=== PATIENT | female | born 1990 | race Caucasian/White ===

== ENCOUNTER → 2017-05-22 10:35 | Outpatient (CLI) | payer OTHER, SELFPAY ==
[2017-05-22 11:21] LABS: Color, Urine Yellow (Yellow); Glucose, Dipstick Normal (Normal); Ketone-Dipstick Negative (Negative); Leukocyte Esterase-Dipstick 25 /ul (Negative); Nitrite-Dipstick Negative (Negative); Occult Blood-Urine Negative /ul (Negative); Protein-Dipstick Negative (Negative); Urine Bilirubin Dipstick Negative (Negative); Urine Clarity Sl. Cloudy (Clear); Urine Urobilinogen Normal (Normal)
[2017-05-22 11:27] LABS: Absolute Lymphocyte Count 1.66 X10^3/ul (0.83-4.51); Absolute Neutrophil Count 2.5 X10^3/uL (2.0-7.7); Basophil# 0.03 X10^3/uL; Basophil% 0.6 % (0-1); Eosinophils% 2.1 % (0-5); Hematocrit 37.8 % (37-47); Hemoglobin 13.1 g/dl (12.0-15.0); Lymphocyte # 1.66 X10^3/ul (4.0); Lymphocyte % 34.7 % (19-41); Mean Corp Hgb Conc 34.7 g/gl (32-36); Mean Corpuscular Hgb 31.4 pg (27.0-32.0); Mean Corpuscular Volume 90.6 fL (81-99); Mean Platelet Vol. 9.2 fl (6.2-12.0); Monocyte# 0.44 X10^3/uL; Monocyte% 9.2 % (0-10); Neutrophil # 2.54 X10^3/uL (2.7-7.7); Neutrophil % 53.2 % (47-70); POSITIVE COUNT NO; POSITIVE DIFFERENTIAL NO; POSITIVE MORPHOLOGY NO; Platelet Count 286 K/mm3 (150-450); RBC Distribution Width CV 12.8 % (11.6-14.6); RBC Distribution Width SD 42.2 fl (35.1-43.9); Red Blood Count 4.17 M/mm3 (4.2-5.4); White Blood Count 4.8 K/mm3 (4.4-11.0)
[2017-05-22 12:01] LABS: Thyroid Stim Hormone (TSH) 0.82 uIU/mL (0.358-3.74)
[2017-05-22 12:07] LABS: Amphetamine Urine VISTA NEGATIVE (<1000 ng/mL); Barbiturate Urine VISTA NEGATIVE (< 200 ng/mL); Benzodiazepine Urine VISTA NEGATIVE (< 200 ng/mL); Cocaine Urine VISTA NEGATIVE (< 300 ng/mL); Ecstacy Urine VISTA NEGATIVE (< 500 ng/mL); Methadone Urine VISTA NEGATIVE (< 300 ng/mL); PCP Urine VISTA NEGATIVE (< 25 ng/mL); THC Urine VISTA NEGATIVE (< 50 ng/mL); Vista UDS pH Range 6
[2017-05-22 12:46] LABS: HIV - WCH Non-Reactive (Nonreactive); Rubella IgG 134.4 IU/mL
[2017-05-22 12:55] LABS: COTININE Drug Screen Negative (<200 ng/mL)
[2017-05-23 15:56] LABS: HEPATITIS B SURFACE AG Negative (Negative); Hep C Antibodies 0.1 s/co ratio (0.0-0.9)
[2017-05-24 01:51] LABS: Prenatal RPR NONREACTIVE (NONREACTIVE)
== END ==
PROVIDERS: Visit Provider Obstetrics & Gynecology
DX: Z34.81 Encounter for supervision of other normal pregnancy, first trimester (principal)
CPT/HCPCS: 36415; 80307; 81002; 84443; 85025; 86703; 86762; 86803; 87340

== ENCOUNTER → 2017-06-26 15:34 | Outpatient (CLI) | payer OTHER, SELFPAY ==
[2017-06-30 03:07] LABS: AFP MoM Value 0.86 (.); Comment Report (.); DIA MoM Value 1.16 (.); DIA Value-EIA 223.49 pg/mL (.); DSR (By Age) 835 (.); DSR (Second Trimester) 2017 (.); Gestat. Age Based On As provided (.); Insulin Dep Diabetes No (.); Maternal Age At EDD 28.3 YEARS (.); hCG MoM 0.64 (.)
== END ==
PROVIDERS: Visit Provider Obstetrics & Gynecology
DX: Z34.82 Encounter for supervision of other normal pregnancy, second trimester (principal)
CPT/HCPCS: 36415; 82105; 82677; 84702; 86336

== ENCOUNTER → 2017-09-16 08:43 | Outpatient (CLI) | payer OTHER, SELFPAY ==
[2017-09-16 11:10] LABS: Hematocrit 33.6 % (37-47); Hemoglobin 11.2 g/dl (12.0-15.0); Mean Corp Hgb Conc 33.3 g/gl (32-36); Mean Corpuscular Hgb 31.2 pg (27.0-32.0); Mean Corpuscular Volume 93.6 fL (81-99); Mean Platelet Vol. 9.8 fl (6.2-12.0); Platelet Count 200 K/mm3 (150-450); RBC Distribution Width CV 13.8 % (11.6-14.6); RBC Distribution Width SD 46.9 fl (35.1-43.9); Red Blood Count 3.59 M/mm3 (4.2-5.4)
[2017-09-16 11:13] LABS: Glucose Challenge Gest 1H 50g 181 mg/dL (70-140)
[2017-09-16 11:16] LABS: Scan Indicated on CBC? Y/N NO
== END ==
PROVIDERS: Visit Provider Obstetrics & Gynecology
DX: Z34.82 Encounter for supervision of other normal pregnancy, second trimester (principal)
CPT/HCPCS: 36415; 82950; 85027

== ENCOUNTER → 2017-09-25 09:57 | Outpatient (CLI) | payer OTHER, SELFPAY ==
[2017-09-25 12:17] LABS: Glucose GTT-Gestation. Fasting 73 mg/dL (<105)
[2017-09-25 12:49] LABS: Glucose GTT-Gestational 1 Hr 138 mg/dL (<190)
[2017-09-25 14:19] LABS: Glucose GTT-Gestational 2 Hr 129 mg/dL (<165)
[2017-09-25 14:20] LABS: Glucose GTT-Gestational 3 Hr 88 L (<145)
== END ==
PROVIDERS: Family Provider Family Medicine; PCP Family Medicine; Visit Provider Obstetrics & Gynecology
DX: O24.912 Unspecified diabetes mellitus in pregnancy, second trimester (principal); Z3A.00 Weeks of gestation of pregnancy not specified
CPT/HCPCS: 36415; 82951; 82952

== ENCOUNTER → 2017-11-24 18:26 | Outpatient (CLI) | payer OTHER, SELFPAY ==
[2017-11-24 21:28] LABS: Group B Strep DNA By PCR POSITIVE (Negative); Probe Check PASS
== END ==
PROVIDERS: Visit Provider Obstetrics & Gynecology
DX: Z36.85 Encounter for antenatal screening for Streptococcus B (principal)
CPT/HCPCS: 87653

== ENCOUNTER 2017-12-04 17:30 | Outpatient (CLI) | payer OTHER, SELFPAY ==
[2017-12-04 17:57] VITALS: BMI 31.6
--- NOTE | 2017-12-04 19:28 | OB.TRI.NOTE ---
- Problem List (1) 38 weeks gestation of Status: Acute (2) Uterine contractions at greater than 20 weeks of gestation Status: Acute History of Present Illness Date of Service: 12/04/17 Was patient seen by the physician?: Yes Reason For Visit: R/O LABOR Final ANTONELLA: 12/18/17 Final ANTONELLA Source: US <20 weeks Gestational age: 38 Weeks and 0 Days History of Present Illness: 27yo at 38 weeks gestation with complaint of contractions. + movement. No leaking of fluid however has abundant mucus. No vaginal bleeding. Allergies No Known Allergies Allergy (Verified 01/11/15 09:45) Physical Exam Vitals: AVSS General: Alert, Oriented x3, Cooperative, - HEENT: Atraumatic, Normocephalic Cervix Dilation (cm): 4 - per BRITTANY Bravo Station: -2 Effacement (%): 60 NST - FHR Rate Baby A Baseline: 120 Variability:: Moderate Accelerations:: 15 x 15 Decelerations:: None NST Reactive:: Yes FHR Category:: Category I Uterine Activity:: 2/10 min Impression/Plan 27yo @ 38wga with contractions, Cat I FHR -Likely latent labor vs. false labor -Will repeat cervix check in 1-2 hours
--- NOTE | 2017-12-04 20:33 | PCM.PN.BLA ---
Progress Note PROGRESS NOTE Patient reports contractions intensifying. AVSS GEN - NAD, AAO x 3 TOCO 2/10 min FHR 110, moderate variability, + accelerations, no decelerations. SVE 07/29/-4, posterior and moderate A/P: 27yo at 38wga with contractions, Cat I-II FHR -During evaluation FHR noted to decrease to 103-105 and appeared that baseline had decreased relative to prior Cat I FHR. status otherwise reassuring. Will monitor FHR for additional hour and returns to Cat I will plan for d/c home given cervix unchanged x 3. If FHR persistently Cat II will consider induction of labor.
== END 2017-12-04 22:42 | disposition home or self-care (01) ==
LOC: WPOUT 17:46 → WP 12-08 08:34
PROVIDERS: Family Provider Family Medicine; PCP Family Medicine; Visit Provider Obstetrics & Gynecology
DX: O47.1 False labor at or after 37 completed weeks of gestation (principal); Z3A.38 38 weeks gestation of pregnancy
CPT/HCPCS: 59025; 59050; 99218; G0378

== ENCOUNTER 2017-12-05 16:20 | Inpatient (IN) | payer OTHER, SELFPAY ==
[2017-12-05] MEDS: Lactated Ringers 1,000 ML 50 ML IV ×3 (17:30→23:53)
[2017-12-05 17:34] VITALS: BMI 32.3
[2017-12-05 17:53] LABS: Hematocrit 34.3 % (37-47); Hemoglobin 11.4 g/dl (12.0-15.0); Mean Corp Hgb Conc 33.2 g/gl (32-36); Mean Corpuscular Hgb 31.2 pg (27.0-32.0); Mean Platelet Vol. 9.9 fl (6.2-12.0); Platelet Count 209 K/mm3 (150-450); RBC Distribution Width CV 13.6 % (11.6-14.6); RBC Distribution Width SD 46.6 fl (35.1-43.9); Red Blood Count 3.65 M/mm3 (4.2-5.4)
[2017-12-05 17:58] LABS: Scan Indicated on CBC? Y/N NO
[2017-12-05] MEDS: Oxytocin 30 units/NS 500 ml 30 UNITS/500 ML IV.SOLN IV (18:35)
[2017-12-05] MEDS: fentaNYL-bupivacaine (epidural) 100 ML BAG EPIDURAL ×2 (19:34→23:47)
[2017-12-05] MEDS: Ondansetron 4 MG/2 ML Vial IV (21:10)
[2017-12-06] VITALS (23 sets, daily range): BP systolic 93–113; BP diastolic 38–61; PULSE 59–95; RESP 16–20; TEMP 36.1–36.8; O2SAT 95–100
--- NOTE | 2017-12-06 00:35 | PCM.PN.BLA ---
Progress Note LABOR PROGRESS NOTE Comfortable with epidural. Informed by RN no change in cervical exam and no presenting part present. AVSS GEN - NAD, AAO x 3 FHR 115, moderate variability, + accelerations, no decelerations TOCO 1-2/10 min SVE deferred US - fetus breech, back maternal midline, ANDREA 5cm A/P: 27yo @ 38 2/7wga in latent labor , Cat I FHR -Rh positive -Advised section - reviewed with patient and section indications, benefits. Risks including pain, bleeding, hematoma, hemorrhage, infection including endometritis, abscess or sepsis; bowel or bladder injury, scarring, adhesions affecting future , nerve related injury, need for further surgery, possibly including dilation and curettage or hysterectomy. Patient given opportunity to ask questions and questions answered to her satisfaction. Discussed anticipated post-operative recovery. -Anesthesiology notified -Blood transfusion acceptable as indicated
[2017-12-06] MEDS: Sodium Citrate/Citric Acid 30 ML UDC PO (00:49)
[2017-12-06] MEDS: Cefazolin 2 GM in 0.9% Normal Saline 100 ML IV (00:58)
[2017-12-06] MEDS: Oxytocin 30 units/NS 500 ml 30 UNITS/500 ML IV.SOLN 167 UNITS IV (01:20)
--- NOTE | 2017-12-06 02:13 | PCM.IMED.CSR ---
- Problem List (1) Breech presentation of fetus delivered Status: Acute (2) Status post section Status: Acute (3) 38 weeks gestation of Status: Acute A-Kwlswyt-Gjbudyrrh PostOp Date of Procedure: 12/06/17 Primary Surgeon/Physician: Corie Mcdermott gasoline truck operator: Bailey Evans Pre-op Diagnosis: Breech Post-Op Diagnosis: Breech Surgery/Procedure Performed: Primary low transverse Section Description of Surgical Findings:: Normal tubes bilaterally complete breech 3278g, Apgars 8 and 9 Estimated Blood Loss: 800 ml Specimens Removed: placenta Drain: Chen to straight drain Type of Anesthesia: Epidural - Admit VTE Documentation VTE Present on Admission: No VTE Mechan Device Prophylaxis: SCD's VTE Pharm Prophylaxis ordered?: No
--- NOTE | 2017-12-06 02:15 | PCM.OB.CSR ---
- Problem List (1) Breech presentation of fetus delivered Status: Acute (2) Status post section Status: Acute (3) 38 weeks gestation of Status: Acute Delivery Classification: BENJAMIN Final ANTONELLA: 12/18/17 Final ANTONELLA Source: US <20 weeks Gestational age: 38 Weeks and 2 Days Indications: Breech presentation Indications for : Breech Description of Procedure: Normal tubes bilaterally complete breech Infant 3278g, Apgars 8 and 9 Amniotic Membrane Rupture Type: Artificial Amniotic Fluid Description: Clear Placenta Disposition: [facility] Specimen(s) sent to pathology: placenta Drain: Chen to straight drain Fluids Replaced: 1300 Cord Entanglement: None Nuchal Cord Compression: Without compression Cord Vessel Description: 3 Vessels Esitmated Blood Loss (ml): 800 Gender: Male (1 minute): 8 (5 minute): 9 Delayed cord clamping: Yes Pre-op Antibiotic Given: Ancef 2 grams IV x1 Pt instructed on risks of surgery: Bleeding, Anesthesia Risks, Infection, Injury to surrounding structure(s) including bowel and bladder Complications: None - Admit VTE Documentation VTE Present on Admission: No VTE Mechan Device Prophylaxis: SCD's VTE Pharm Prophylaxis ordered?: No
[2017-12-06] MEDS: Lactated Ringers 1,000 ML 100 ML IV (04:04)
[2017-12-06] MEDS: Ketorolac 30 MG/ML Syringe IV ×3 (08:02→20:06)
--- NOTE | 2017-12-06 11:10 | PCM.PN.BLA ---
Progress Note Patient has mother and stepfather visiting. She relates pain is controlled and is out of bed and sitting in chair holding . She has no complaints this morning. Vitals reviewed and wnl. Continue routine post-op care.
[2017-12-06] MEDS: 0.9% Saline Lock 10 ML Syringe IV ×2 (14:14→20:06)
--- NOTE | 2017-12-06 17:29 | NURSING ---
1645 Chen discontinued per patient request. Emptied for another 400ml clear lt yellow urine. Instructed patient to call for help to go to bathroom due to pulse oximeter. States she will. Instructed to measure urine in speci hat x2. Instructed in tom care. Up to the bathroom, tom care done per pt. Returns to bed, resting. States she is comfortable.
--- NOTE | 2017-12-06 18:52 | NURSING ---
1650 Up to the bathroom voids 400ml, aleena well. states she feels like she emptied her bladder. darren nails.
[2017-12-07 00:05] VITALS: PULSE 64; RESP 18; O2SAT 97
[2017-12-07 01:25] VITALS: BP 97/52; PULSE 67; RESP 18; TEMP 36.4; O2SAT 98
[2017-12-07] MEDS: Ketorolac 30 MG/ML Syringe IV ×4 (01:32→19:48)
[2017-12-07] MEDS: oxyCODONE 5 MG Tablet PO ×3 (01:33→13:03)
[2017-12-07] MEDS: 0.9% Saline Lock 10 ML Syringe IV ×4 (01:33→19:48)
[2017-12-07 05:49] LABS: Hematocrit 28.8 % (37-47); Hemoglobin 9.4 g/dl (12.0-15.0); Mean Corp Hgb Conc 32.6 g/gl (32-36); Mean Corpuscular Hgb 31.8 pg (27.0-32.0); Mean Corpuscular Volume 97.3 fL (81-99); Mean Platelet Vol. 9.5 fl (6.2-12.0); Platelet Count 160 K/mm3 (150-450); RBC Distribution Width CV 13.4 % (11.6-14.6); RBC Distribution Width SD 45.9 fl (35.1-43.9); Red Blood Count 2.96 M/mm3 (4.2-5.4)
[2017-12-07 05:57] LABS: Scan Indicated on CBC? Y/N NO
[2017-12-07 07:40] VITALS: BP 100/56; PULSE 66; RESP 16; TEMP 36.6; O2SAT 96
--- NOTE | 2017-12-07 09:05 | PCM.PN.OB ---
Patient Problems: Active and Suspected Problems Breech presentation of fetus delivered (Acute) Status post section (Acute) Subjective: No issues overnight. OOB and ambulating. Passing flatus. Tolerates a regular diet. She is . No complaints. Gregoria has questions about activity restrictions at home. Objective: avsss - Physical Exam General: Alert, Oriented x3, Cooperative, No apparent distress HEENT: Atraumatic, Normocephalic Lungs: Clear to auscultation, Normal air movement, No rhonchi, No wheeze, No rales Cardiovascular: Regular rate, Regular Rhythm, Normal S1, Normal S2, No murmurs Abdomen: Soft, Non Tender, Non-Distended, Hypoactive Bowel Sounds, - - Fundus firm and nontender, lochia scant, incisional dressing minimally saturated Extremities: No edema, No Calf Tenderness Neurological: Neuro grossly intact Psych/Mental Status: Normal Affect, Appropriate, Alert and oriented to time, place, person, mood and affect Vital Signs Temp Pulse Resp BP Pulse Ox 97.8 F 66 16 100/56 L 96 12/07/17 07:40 12/07/17 07:40 12/07/17 07:40 12/07/17 07:40 12/07/17 07:40 Oxygen Delivery Method Room Air Weight: 80.2 kg Body Mass Index (BMI) 32.3 Intake and Output for Last 24 Hours 12/05/17 12/06/17 12/07/17 23:59 23:59 23:59 Intake Total 1915 / 1915 3985 / 3985 Output Total 900 / 900 3050 / 3050 Balance 1015 / 1015 935 / 935 Laboratory Tests Past 24 Hrs 12/07/17 05:10 WBC 7.0 RBC 2.96 L Hgb 9.4 L Hct 28.8 L MCV 97.3 MCH 31.8 MCHC 32.6 RDW 13.4 RDW Differential 45.9 H Plt Count 160 MPV 9.5 Medical Necessity - Tobacco Use Smoking Status: Former smoker Assessment/Plan All Active Problems 38 weeks gestation of (Acute) Uterine contractions at greater than 20 weeks of gestation (Acute) Breech presentation of fetus delivered (Acute) Status post section (Acute) 27yo POD#1 s/p PLTCS doing well. -Rh positive -Routine postop care - -Discussed activity restrictions and home care
[2017-12-07] MEDS: Acetaminophen 325 MG Tablet PO ×2 (09:40→19:00)
[2017-12-07 14:40] VITALS: BP 128/71; PULSE 80; RESP 15; TEMP 36.9; O2SAT 96
[2017-12-07 19:35] VITALS: BP 105/61; PULSE 69; RESP 18; TEMP 37.2; O2SAT 96
--- NOTE | 2017-12-07 22:14 | PCM.DCCSEC ---
Discharge Diet: No Restrictions Discharge Activity: Return to Normal Activity, May not drive while taking narcotic pain medications., May Shower, - - No tuba bath x 2 weeks May resume sexual activity in: 6 weeks Lifting Restrictions: 10-20 lb Call your doctor if your incision/area has: Continuous Slow Oozing, Sudden Increased Bleeding, Increased Pain/ Swelling, Increased Redness, Foul Smelling Discharge Call your doctor if you observe: Fever of 101 or Higher, Inability to urinate, Inability to have a bowel movement, Using more than one pad per hour, Shortness of breath, Chest pain, Calf discomfort, Uncontrolled pain Suture Line Care: Avoid Pulling/Pushing Remove Dressing in (days):: 3 Cleanse incision/area with: Soap & Water Additional Instructions: If you experience any of the following, contact your healthcare provider. Bleeding that soaks a pad every hour for 2 hours Fever 100.4 or higher Unrelieved incision or abdominal pain Swelling, redness, discharge or bleeding from your incision or episiotomy site Your incision begins to separate Problems urinating (including inability to urinate or burning while urinating). Visual changes Severe headache Flu-like symptoms Pain or redness in one of both of your breasts Pain, warmth, tenderness or swelling in your legs, especially the calf area Frequent nausea and vomiting Symptoms of depression or anxiety If you experience any of the following, call 911 or go to the nearest Emergency Room. Chest pain Problems breathing Seizure activity Partial or complete paralysis of a body part, slurred speech, weakness or drooping of the face, or a sudden inability to walk or hold your balance TAKE A MULTIVITAMIN FOR LONG YOU ARE NURSING OR 6 WEEKS - WHICHEVER IS LONGER Allergies/Adverse Reactions: Allergies No Known Allergies Allergy (Verified 01/11/15 09:45) Medications to take at Discharge Ibuprofen 600 mg PO TID PRN #30 tab 12/07/17 Oxycodone [Oxyir] 5 mg PO Q4H PRN PRN 3 Days #18 tablet 12/07/17 Senna/Docusate Sodium [Senokot-S] 1 - 2 tab PO DAILY PRN #60 tablet 12/07/17 The following prescriptions were given: Oxycodone [Oxyir] 5 mg PO Q4H PRN PRN 3 Days #18 tablet PRN Reason: Pain Ibuprofen 600 mg PO TID PRN #30 tab PRN Reason: Pain Follow-Up: Call to make an appointment with your doctor for an incision check in 1-2 weeks. You will also need a 6 week post- follow up appointment. Test results from this visit will be discussed in further detail at your follow-up appointment, if applicable. Please Follow Up With: Eden Mac MD When: 1-2 weeks Primary Care Physician: Azeem Stone MD [Primary Care Provider] -
[2017-12-08] MEDS: Senna/Docusate Sodium 1 Tablet PO (01:52)
[2017-12-08] MEDS: Ketorolac 30 MG/ML Syringe IV (01:53)
[2017-12-08 02:00] VITALS: BP 100/61; PULSE 72; RESP 16; TEMP 36.7; O2SAT 98
[2017-12-08] MEDS: Acetaminophen 325 MG Tablet PO (04:16)
--- NOTE | 2017-12-08 07:45 | PCM.PN.OB ---
Patient Problems: Active and Suspected Problems Breech presentation of fetus delivered (Acute) Status post section (Acute) Subjective: POD#2 Primary C/S Breech Doing well. Milk not quite in. would like to go home today. States feels pretty well. no concerns voiced. Asking about when to remove dressing from incision. Pain control adequate. - Physical Exam General: Alert, Oriented x3, Cooperative, No apparent distress HEENT: Atraumatic Neck: Supple Abdomen: Soft - Fundus firm NT at 1-2 cm inferior to umbilicus Skin: Incision - Mepilex CDI. Minimal shadow drainage marked, w/o extension. Neurological: Cranial nerves II-XII grossly intact Psych/Mental Status: Normal Affect Vital Signs Temp Pulse Resp BP Pulse Ox 98.1 F 72 16 100/61 98 12/08/17 02:00 12/08/17 02:00 12/08/17 02:00 12/08/17 02:00 12/08/17 02:00 Oxygen Delivery Method Room Air Weight: 80.2 kg Body Mass Index (BMI) 32.3 Intake and Output for Last 24 Hours 12/06/17 12/07/17 12/08/17 23:59 23:59 23:59 Intake Total 3985 / 3985 Output Total 3050 / 3050 Balance 935 / 935 Medical Necessity - Tobacco Use Smoking Status: Former smoker Assessment/Plan All Active Problems 38 weeks gestation of (Acute) Uterine contractions at greater than 20 weeks of gestation (Acute) Breech presentation of fetus delivered (Acute) Status post section (Acute) POD#2 Primary c/S breech Stable pp. requests dischg home today. RTO in 2 wk for postop incision check. reviewed care of incision.
--- NOTE | 2017-12-08 07:49 | PCM.DC.SUM ---
Discharge Date and Diagnosis - Problem List Patient Problems: Active and Suspected Problems Breech presentation of fetus delivered (Acute) Status post section (Acute) Date of Admission: 12/05/17 - 38 2/7 wk latent labor Date of Discharge: 12/08/17 - s/p primary C/S , breech presentation - Primary Discharge Diagnosis Active and Suspected Problems Breech presentation of fetus delivered (Acute) Status post section (Acute) Hospital Course and Treatment Operations: - - primary C/S breech Summary of Care Provided: The patient is a 27 year old female admitted in latent labor. Epidural placed. Presenting part not palpable and sono revealed breech presentation. Primary C/S performed delivered lopez male 7# 4 oz. Breech presentation. Postop course uneventful. Acute blood loss anemia noted after surgery with hgb 9.4 g/dl. tolerating diet, pain control adequate. Minimal vaginal bleeding. Exam benign. Breast feeding. Requests dischg home today , POD#2. RTO in 2 wk for postop incision check. Discharge Diet: No Restrictions Discharge Activity: Return to Normal Activity, May not drive while taking narcotic pain medications., May Shower, - - No tuba bath x 2 weeks May resume sexual activity in: 6 weeks Call your doctor if your incision/area has: Continuous Slow Oozing, Sudden Increased Bleeding, Increased Pain/ Swelling, Increased Redness, Foul Smelling Discharge Call your doctor if you observe: Fever of 101 or Higher, Inability to urinate, Inability to have a bowel movement, Using more than one pad per hour, Shortness of breath, Chest pain, Calf discomfort, Uncontrolled pain Suture Line Care: Avoid Pulling/Pushing Remove Dressing in (days):: 3 Cleanse incision/area with: Soap & Water Home Medications: Medications to take at Discharge Ibuprofen 600 mg PO TID PRN #30 tab 12/07/17 Oxycodone [Oxyir] 5 mg PO Q4H PRN PRN 3 Days #18 tablet 12/07/17 Senna/Docusate Sodium [Senokot-S] 1 - 2 tab PO DAILY PRN #60 tablet 12/07/17 Following Prescrptions Were Given to Patient: Oxycodone [Oxyir] 5 mg PO Q4H PRN PRN 3 Days #18 tablet PRN Reason: Pain Ibuprofen 600 mg PO TID PRN #30 tab PRN Reason: Pain Primary Care Physician: Azeem Stone MD [Primary Care Provider] - Please Follow Up With: Eden Mac MD When: 1-2 weeks Medical Necessity - Tobacco Use Smoking Status: Former smoker Meaningful Use Info Meaningful Use Diagnoses (Choose all that apply): None applicable
[2017-12-08 08:10] VITALS: BP 104/37; PULSE 60; RESP 15; TEMP 36.6; O2SAT 100
[2017-12-08] MEDS: oxyCODONE 5 MG Tablet PO (09:44)
[2017-12-08 12:00] VITALS: BP 112/46; PULSE 66; RESP 16; TEMP 36.6; O2SAT 95
== END 2017-12-08 13:45 | disposition home or self-care (01) | DRG 765 ==
PROVIDERS: Admitting Provider Obstetrics & Gynecology; Family Provider Family Medicine; PCP Family Medicine; Visit Provider Obstetrics & Gynecology
DX: O32.1XX0 Maternal care for breech presentation, not applicable or unspecified (principal); D62 Acute posthemorrhagic anemia; O76 Abnormality in fetal heart rate and rhythm complicating labor and delivery; O90.81 Anemia of the puerperium; O99.824 Streptococcus B carrier state complicating childbirth; Z87.59 Personal history of other complications of pregnancy, childbirth and the puerperium; Z87.891 Personal history of nicotine dependence; Z3A.38 38 weeks gestation of pregnancy; Z37.0 Single live birth
CPT/HCPCS: 59025; 59050; 85027; 86850; 86900; 94762; 99218; J7120; A4216; G0378; J2405

== ENCOUNTER → 2017-12-11 14:57 | Outpatient (CLI) | payer OTHER, SELFPAY | PROVIDERS: Family Provider Family Medicine; PCP Family Medicine; Visit Provider Obstetrics & Gynecology | DX: R60.0 Localized edema (principal) | CPT/HCPCS: 93971 ==

== ENCOUNTER → 2018-01-15 13:32 | Outpatient (CLI) | payer OTHER, SELFPAY ==
[2018-01-15 21:46] LABS: Chlamydia Trachomatis by PCR Negative (Negative); Neisserai gonorrhoeae by PCR Negative (Negative); Probe Check PASS; Sample Adequacy Control PASS; Specimen Processing Control PASS
== END ==
PROVIDERS: Visit Provider Obstetrics & Gynecology
DX: Z11.3 Encounter for screening for infections with a predominantly sexual mode of transmission (principal)
CPT/HCPCS: 87491; 87591

== ENCOUNTER → 2019-11-03 08:48 | Outpatient (CLI) | payer BC, SELFPAY ==
--- NOTE | 2019-11-03 08:52 | BI_ITS ---
MAMMOGRAPHY - BILATERAL DIAGNOSTIC REASON FOR EXAM: Female, 29 years old. Six-month history of right breast lump with occasional tenderness. PERTINENT HISTORY: Grandmothers with breast cancer. TECHNIQUE: Digital bilateral breast alfredo (3D mammographic acquisition) in the CC and MLO projections. 2-D mediolateral oblique (MLO) and craniocaudad (CC) views of both breasts were obtained. CAD: Full Field Digital Mammography with Computer Added Detection was performed. COMPARISON: None. Baseline examination. FINDINGS: Breast Composition: The breasts are extremely dense, which lowers the sensitivity of mammography. I suspect a 2.4 cm x 2.6 cm well-defined nodule in the axillary region of the left breast. No other significant abnormalities are identified. BI/DIAG MAMM W/CAD, BILAT IMPRESSION: 2.4 cm x 2.6 cm well-defined nodule in the axillary view of the left breast. With the patient''s history of a palpable lump in the inferior medial aspect of the right breast, correlation with bilateral breast ultrasound is recommended. ASSESSMENT CATEGORY: BIRADS Category 0: Incomplete. Need additional imaging evaluation. A letter regarding these results will be sent to the patient by the facility within 30 days. Approximately 10% of breast cancers are not detected by mammography. A normal mammogram should not delay biopsy of a clinically suspicious abnormality. Electronically Signed: Alli Fonseca, at 10:41 EDT , Service support ,
--- NOTE | 2019-11-03 08:52 | US_ITS ---
STUDY: ULTRASOUND BREAST - RIGHT REASON FOR EXAM: Female, 29 years old. Palpable lump in the right breast. TECHNIQUE: Axial and longitudinal images of the RIGHT breast were performed with a high resolution ultrasound transducer. # OF IMAGES: 17 COMPARISON: Comparison is made with prior mammogram done earlier in the day as well as prior sonogram of the right breast dated 05/21/2015. FINDINGS: RIGHT Breast: The lower inner quadrant of the breast was examined by ultrasound. There is dense fibroglandular tissue. No solid or cystic mass lesion is seen. US/Breast Limited Unilateral IMPRESSION: Unremarkable sonographic examination of the inner lower quadrant of the right breast. ASSESSMENT CATEGORY: BIRADS Category 1: Negative. A letter regarding these results will be sent to the patient by the facility within 30 days. Electronically Signed: Alli Fonseca, at 12:47 EDT , Service support ,
== END ==
PROVIDERS: PCP Family Medicine; Referring Provider Obstetrics & Gynecology; Visit Provider Obstetrics & Gynecology
DX: N63.14 Unspecified lump in the right breast, lower inner quadrant (principal)
CPT/HCPCS: 76642; 77062; 77066; G0279

== ENCOUNTER → 2019-11-08 11:03 | Outpatient (CLI) | payer BC, SELFPAY ==
--- NOTE | 2019-11-08 11:04 | US_ITS ---
STUDY: ULTRASOUND BREAST - LEFT REASON FOR EXAM: Female, 29 years old. Abnormal screening mammogram. TECHNIQUE: Axial and longitudinal images of the LEFT breast were performed with a high resolution ultrasound transducer. # OF IMAGES: 48 COMPARISON: Comparison is made with prior mammogram dated 11/03/2019. FINDINGS: LEFT Breast: There is a 1.6 cm x 1.6 cm x 0.8 cm well-defined hypoechoic nodule at the 3 o''clock position in the breast at 2 cm from nipple. This may represent a fibroadenoma although tissue diagnosis is recommended. Is also evidence of a 2 benign appearing axillary lymph nodes. The larger measures 2.8 cm x 2.2 cm x 1.4 cm. US/Breast Limited Unilateral IMPRESSION: 1.6 cm x 1.6 cm x 0.8 cm well-defined hypoechoic nodule at the 3 o''clock position of the breast at 2 cm from nipple. A biopsy is recommended. Small benign-appearing right axillary lymph nodes. ASSESSMENT CATEGORY: BIRADS Category 4: Suspicious - Biopsy Should Be Considered. A letter regarding these results will be sent to the patient by the facility within 30 days. Electronically Signed: Alli Fonseca, at 12:33 EDT , Service support ,
== END ==
PROVIDERS: PCP Family Medicine; Referring Provider Obstetrics & Gynecology; Visit Provider Obstetrics & Gynecology
DX: N63.23 Unspecified lump in the left breast, lower outer quadrant (principal)
CPT/HCPCS: 76642

== ENCOUNTER → 2019-11-11 16:10 | Outpatient (CLI) | payer BC, SELFPAY ==
[2019-11-11 13:25] VITALS: BMI 32.3
--- NOTE | 2019-11-11 13:30 | BRBX_PTH ---
PATIENT: JERAMY PALAFOX LOC: [facility] U#:[id number] AGE/SX: 34/F ROOM: RE11/11/[address]: Dr. Adalid Haji MD : 1990 BED: DIS: SPEC #: [id number] RECD: 11/11/19 15:56 STATUS: GENNA MENDEL #: [id number] GEORGINA: 11/11/19 13:[address]: Adalid Haji DEPT: SURGICAL PATHOLOGY RECD BY: Oswaldo Vasquez ENTERED: 11/14/19 07:23 SP TYPE: BREAST BX OTHR DR: Dr. Brock Stone MD Tissues: Left breast, NOS Procedures: Surgery Specimen Level IV HEADER OPERATION: Left breast biopsy PRE-OP DIAGNOSIS: Left breast mass TISSUE SUBMITTED: Left breast tissue MICROSCOPIC DIAGNOSIS Left breast tissue, core biopsy: Fragments of benign breast tissue with dense fibrosis and minimal ductal dilatation. Negative for atypia or malignancy. See comment. SJ:luis angel 11/15/19 COMMENT Correlation with clinical, radiologic findings and appropriate follow up are necessary. MICROSCOPIC DESCRIPTION Slides are reviewed. GROSS DESCRIPTION Received in fixative is one container labeled with the patient name and designated left breast. The specimen consists of multiple elongated fragments of zhang-yellow fibroadipose tissue that in aggregate measure 2 x 1 x 0.1 cm. The entire specimen is submitted in one cassette. / GAVIN:luis angel 11/14/19 TC:5 CPT: 79654
== END ==
PROVIDERS: PCP Family Medicine; Referring Provider Surgery; Visit Provider Surgery
DX: N63.20 Unspecified lump in the left breast, unspecified quadrant (principal)
CPT/HCPCS: 88305

== ENCOUNTER 2020-03-14 18:30 | Outpatient (RCR) | payer BC, SELFPAY ==
[2020-02-20 14:33] VITALS: BMI 27.1
--- NOTE | 2020-02-21 11:11 | HP.PTEVAL ---
Patient's Visit Information JERAMY PALAFOX is a 29 year old F referred to Physical Therapy by Dr. Avel Gross DO with a diagnosis of R lateral akle sprain. Date of Evaluation: 02/21/20 Physical Therapist: PANCHO Kohli - Visit Plan Frequency: 2-3x /Week Duration: 4-6 Weeks Plan: 2-3X/ week for 4-6 weeks for R ankle AROM, PROM, strengthening, balance and proprioception, gait with HEP and modalities as needed. - Subjective It has been 10 days since she stepped down out of her car and she landed on the R lateral foot and heard a pop and waiting 3 hours before [facility] to [facility]. X-ray was fine. She say Dr Gross yesterday and he said do 3 weeks of PT and then back to see him to do an MRI. He did mention surgery. Dr Sanon from the [facility] but her in a walking boot. It is still so swollen... not as bad but pretty swollen and by the end of the day it is huge. She is trying to stay off of it. She has 3 kids, 6, 3 and 2. She is still icing it everyother hour and at night she tries to do an ice bath. ABC's are extremely painful to do and it feels like bone on bone. It is still throbbing at night and hard to sleep. Starting to complain about R knee pain due to walking with walking boot. - Pain R ankle pain Pain Intensity (Out of 10): 0 Pain Intensity Range: 6 Comment: with walking in boot - Objective Gait: walks with a walking boot on her R foot with decrease stance time on the R LE. R Ankle AROM: -4 degrees from neutral, PF 21 degrees, INV 10 degrees, EV 3 degrees. L Ankle AROM: 15 degrees DF, PF 58 degrees, INV 27 degrees, EV 10 degrees. R ankle MMT NT due to pain. Palpation: tender overal lateral ankle ligaments. L ankle MMT: 5/5 PF, DF, INV, EV. R ankle girth measurements lat to med mal 25.4, Figure 8 50, Met heads 22.1. L ankle girth measurements: lat to med mal 24.2, figure 8 48.1, and met heads 21.5 - Goals Goal 1:: I HEP Goal Time Frame: 4-6 Weeks Goal 2:: Increase R ankle AROM to equal that of the L (at time of eval: R Ankle AROM: -4 degrees from neutral, PF 21 degrees, INV 10 degrees, EV 3 degrees. L Ankle AROM: 15 degrees DF, PF 58 degrees, INV 27 degrees, EV 10 degrees). Goal Time Frame: 4-6 Weeks Goal 3:: Increase R ankle strength to 4/5 INV/EV and DF/PF Goal Time Frame: 4-6 Weeks Goal 4:: Decrease pain to 1/10 with walking in walking boot. Goal Time Frame: 4-6 Weeks - Rehabilitation Potential Rehabilitation Potential: Good - Anticipated Interventions Patient/Client Instruction: Educate patient on: Condition, Plan of Care For the Purpose of:: To decrease pain, To decrease swelling/inflammation, To increase ROM, To improve nutrient delivery to tissue, To improve muscle performance and motor function, To improve ability to perform ADL's, To increase tolerance to activity/condition/position, To improve performance and independence with ADL's, To decrease level of supervision to perform tasks, To improve ability of physical actions for home/community/work/leisure, To improve gait and locomotor functions, To improve health of tissue, To decrease soft tissue restriction, To increase flexibility/ROM, To improve endurance, To improve balance Therapeutic Exercise to Include: Strength training, Balance training, Postural training, Flexibilty training, Gait and locomotor training, Passive ROM, Active ROM For the Purpose of:: To decrease pain, To decrease swelling/inflammation, To increase ROM, To improve nutrient delivery to tissue, To increase oxygenation perfusion, To improve muscle performance and motor function, To improve ability to perform ADL's, To increase tolerance to activity/condition/position, To improve performance and independence with ADL's, To decrease level of supervision to perform tasks, To improve ability of physical actions for home/community/work/leisure, To decrease soft tissue restriction, To increase flexibility/ROM, To improve endurance, To improve balance Functional Training to Include: Gait training For the Purpose of:: To improve gait and locomotor functions Manual Therapy Techniques to Include: Passive ROM, Soft tissue mobilization For the Purpose of:: To decrease pain, To increase ROM, To improve nutrient delivery to tissue, To improve muscle performance and motor function IF ES: Yes Cryotherapy (ice pack, ice massage): Yes For the Purpose of:: To decrease pain, To decrease swelling/inflammation, To increase ROM, To improve nutrient delivery to tissue Thank you for the opportunity to evaluate your patient. For Medicare and Medicare HMO plans, please review the plan of care and approve it. It will need to be FAXED BACK to us at [phone] for Medicare purposes. For Medicare only, by signing this I certify the plan of care. Please let me know if there are questions or concerns regarding this plan of care. Physician Signature: Date:
--- NOTE | 2020-03-14 18:58 | HP.PTREVAL ---
Dr. Avel Gross, DO, It has been my pleasure to treat JERAMY PALAFOX over the last 7 visits for R lateral akle sprain. Please see the progress note below for an update on the physical therapy plan of care! Subjective: Pt goes back to the Dr apple. The swelling has improved greatly and she feels that there is a little more strength. THe up and down motions are better but the side to side it she feels the bone on bone. 4/10 ankle pain with walkiong Objective/Function: Issued green band for home. R DF 10 degree 3+/5. R PF 39 degrees 3-/5. R EV 3-/5. R INV 3-/5. Able to SLB for 30 sec but increase instability seen. Gait: walks with decrease stance time on the R LE Plan Plan: HOld chart until after MD appointment. Will need to get additional PT approved if ordered Goals Goal 1:: I HEP Goal Time Frame: 4-6 Weeks Goal Progress: Goal Met Goal 2:: Increase R ankle AROM to equal that of the L (at time of eval: R Ankle AROM: -4 degrees from neutral, PF 21 degrees, INV 10 degrees, EV 3 degrees. L Ankle AROM: 15 degrees DF, PF 58 degrees, INV 27 degrees, EV 10 degrees). Goal Time Frame: 4-6 Weeks Goal Progress: Progressing Goal 3:: Increase R ankle strength to 4/5 INV/EV and DF/PF Goal Time Frame: 4-6 Weeks Goal Progress: Progressing Goal 4:: Decrease pain to 1/10 with walking in walking boot. Goal Time Frame: 4-6 Weeks Goal Progress: Progressing Anticipated Interventions Patient/Client Instruction: Educate patient on: Condition, Plan of Care For the Purpose of:: To decrease pain, To decrease swelling/inflammation, To increase ROM, To improve nutrient delivery to tissue, To improve muscle performance and motor function, To improve ability to perform ADL's, To increase tolerance to activity/condition/position, To improve performance and independence with ADL's, To decrease level of supervision to perform tasks, To improve ability of physical actions for home/community/work/leisure, To improve gait and locomotor functions, To improve health of tissue, To decrease soft tissue restriction, To increase flexibility/ROM, To improve endurance, To improve balance Therapeutic Exercise to Include: Strength training, Balance training, Postural training, Flexibilty training, Gait and locomotor training, Passive ROM, Active ROM For the Purpose of:: To decrease pain, To decrease swelling/inflammation, To increase ROM, To improve nutrient delivery to tissue, To increase oxygenation perfusion, To improve muscle performance and motor function, To improve ability to perform ADL's, To increase tolerance to activity/condition/position, To improve performance and independence with ADL's, To decrease level of supervision to perform tasks, To improve ability of physical actions for home/community/work/leisure, To decrease soft tissue restriction, To increase flexibility/ROM, To improve endurance, To improve balance Functional Training to Include: Gait training For the Purpose of:: To improve gait and locomotor functions Manual Therapy Techniques to Include: Passive ROM, Soft tissue mobilization For the Purpose of:: To decrease pain, To increase ROM, To improve nutrient delivery to tissue, To improve muscle performance and motor function IF ES: Yes Cryotherapy (ice pack, ice massage): Yes For the Purpose of:: To decrease pain, To decrease swelling/inflammation, To increase ROM, To improve nutrient delivery to tissue Please do not hesitate to contact me at [phone] by phone or if you have questions or concerns regarding this new plan of care! Sincerely, PANCHO Kohli
--- NOTE | 2020-05-15 10:44 | HP.PT.NRP ---
JERAMY PALAFOX was seen in my office for initial evaluation on 02/21/20. The following Plan of Care was established for this patient: Initial Frequency: 2-3x /Week Initial Duration: 4-6 Weeks Patient/Client Instruction: Educate patient on: Condition, Plan of Care For the Purpose of:: To decrease pain, To decrease swelling/inflammation, To increase ROM, To improve nutrient delivery to tissue, To improve muscle performance and motor function, To improve ability to perform ADL's, To increase tolerance to activity/condition/position, To improve performance and independence with ADL's, To decrease level of supervision to perform tasks, To improve ability of physical actions for home/community/work/leisure, To improve gait and locomotor functions, To improve health of tissue, To decrease soft tissue restriction, To increase flexibility/ROM, To improve endurance, To improve balance Therapeutic Exercise to Include: Strength training, Balance training, Postural training, Flexibilty training, Gait and locomotor training, Passive ROM, Active ROM For the Purpose of:: To decrease pain, To decrease swelling/inflammation, To increase ROM, To improve nutrient delivery to tissue, To increase oxygenation perfusion, To improve muscle performance and motor function, To improve ability to perform ADL's, To increase tolerance to activity/condition/position, To improve performance and independence with ADL's, To decrease level of supervision to perform tasks, To improve ability of physical actions for home/community/work/leisure, To decrease soft tissue restriction, To increase flexibility/ROM, To improve endurance, To improve balance Functional Training to Include: Gait training For the Purpose of:: To improve gait and locomotor functions Manual Therapy Techniques to Include: Passive ROM, Soft tissue mobilization For the Purpose of:: To decrease pain, To increase ROM, To improve nutrient delivery to tissue, To improve muscle performance and motor function IF ES: Yes Cryotherapy (ice pack, ice massage): Yes For the Purpose of:: To decrease pain, To decrease swelling/inflammation, To increase ROM, To improve nutrient delivery to tissue This patient was last seen in our office 03/14/20. Pertinent comments regarding their Physical therapy will appear below: Pt will be discharged as her Dr will be doing further testing. At this point I will be discontinuing this patient from physical therapy. I would be happy to see this patient again in the future if found appropriate by the physician. Thank you! Lakia Rangel, MPT
== END 2020-03-14 19:00 | disposition home or self-care (01) ==
LOC: PT 18:30
PROVIDERS: PCP Family Medicine; Referring Provider Orthopaedic Surgery; Visit Provider Orthopaedic Surgery
DX: S93.491D Sprain of other ligament of right ankle, subsequent encounter (principal)
CPT/HCPCS: 97014; 97110; 97161; G0283

== ENCOUNTER → 2020-04-02 07:58 | Outpatient (CLI) | payer BC, SELFPAY ==
[2020-02-20 14:33] VITALS: BMI 27.1
--- NOTE | 2020-04-02 07:59 | MRI_ITS ---
STUDY: MRI RIGHT ANKLE WITHOUT CONTRAST REASON FOR EXAM: Female, 29 years old. C/O PAIN AND SWELLING LATERALLY AFTER SLIPPING, HEARD POP IN ANKLE TECHNIQUE: Standardized fat and water weighted pulse sequences were obtained in all 3 orthogonal planes. COMPARISON: X-ray dated 02/09/2020. FINDINGS: No acute fracture, dislocation or osseous destruction. Moderate volume tibiotalar/subtalar joint effusion. Soft tissue swelling predominates laterally. No solid, cystic or lipomatous lesions. High-grade partial tear of the anterior talofibular ligament (axial image 14 series 3). Normal posterior cruciate ligament. Mild deltoid ligament sprain (coronal images 16 and 17 series 4). Normal spring ligament. Normal Lisfranc ligament. Sinus Tarsi/subtalar ligament sprains. Normal extensor tendons. Mild posterior tibialis tenosynovitis. Remaining flexor tendons unremarkable. Moderate peroneus longus/brevis tenosynovitis. Normal Achilles tendon. Normal plantar fascia. Normal plantar calcaneal insertion. Normal muscles of the midfoot/hindfoot. Tibiotalar cartilage preserved. Subtalar cartilage preserved. Calcaneocuboid cartilage preserved. Talonavicular cartilage preserved. Navicular cuneiform cartilage preserved. Normal tarsometatarsal joints. MRI/Lower Ext Joint Only (Routine) IMPRESSION: High-grade partial thickness ATFL tear Acute low-grade deltoid ligament sprain without tear Acute low-grade sinus Tarsi/subtalar ligament sprains without tear (sinus Tarsi syndrome) Moderate volume tibiotalar/subtalar joint effusion with lateral soft tissue swelling Posterior tibialis and peroneus longus/brevis tenosynovitis Electronically Signed: Sebastien Bonds DO at 10:10 EST Tel , Service support ,
== END ==
PROVIDERS: PCP Family Medicine; Referring Provider Orthopaedic Surgery; Visit Provider Orthopaedic Surgery
DX: S93.401D Sprain of unspecified ligament of right ankle, subsequent encounter (principal)
CPT/HCPCS: 73721

== ENCOUNTER → 2020-04-17 12:55 | Outpatient (CLI) | payer BC, SELFPAY ==
[2020-02-20 14:33] VITALS: BMI 27.1
--- NOTE | 2020-04-17 12:57 | US_ITS ---
STUDY: ULTRASOUND BREAST - LEFT REASON FOR EXAM: Female, 29 years old. Six-month follow-up examination. TECHNIQUE: Axial and longitudinal images of the LEFT breast were performed with a high resolution ultrasound transducer. # OF IMAGES: 37 COMPARISON: Comparison is made with prior ultrasound of the left breast dated 11/08/2019. FINDINGS: LEFT Breast: 2 benign-appearing lymph nodes are seen in the left axilla. The larger measures 2.8 cm x 2 cm x 1.5 cm. This is unchanged. Stable 1.6 cm x 1.8 cm x 0.9 cm well-defined hypoechoic nodule at the 3 o''clock position the breast examination. This is unchanged. A tissue clip marker is seen within it. US/Breast Limited Unilateral IMPRESSION: Stable appearance of the 2 axillary lymph nodes. Stable appearance of the well-defined hypoechoic nodule at the 3 o''clock position the breast at 2 cm from the nipple. A tissue clip marker is now seen within it. ASSESSMENT CATEGORY: BIRADS Category 2: Benign. A letter regarding these results will be sent to the patient by the facility within 30 days. Electronically Signed: Alli Fonseca, at 8:50 EST , Service support ,
== END ==
PROVIDERS: PCP Family Medicine; Referring Provider Surgery; Visit Provider Surgery
DX: N63.20 Unspecified lump in the left breast, unspecified quadrant (principal)
CPT/HCPCS: 76642

== ENCOUNTER 2020-05-02 08:48 | Day surgery (SDC) | payer BC, SELFPAY ==
[2020-02-20 14:33] VITALS: BMI 27.1
[2020-05-02] VITALS (7 sets, daily range): BP systolic 114–121; BP diastolic 64–73; PULSE 81–105; RESP 16–18; TEMP 36.5–36.8; O2SAT 95–98; BMI 28.6
--- NOTE | 2020-05-02 | SYN_PTH ---
PATIENT: JERAMY PALAFOX LOC: [facility] [place] U#:[id number] AGE/SX: 29/F ROOM: RE05/02/[address]: Dr. Barbara Cabral DO : 1990 BED: DIS: 05/02/2020 SPEC #: [id number] RECD: 05/02/20 14:11 STATUS: GENNA MENDEL #: [id number] GEORGINA: 05/02/20 00:[address]: Barbara Cabral DEPT: SURGICAL PATHOLOGY RECD BY: Laurent Garcia ENTERED: 05/03/20 07:49 SP TYPE: SYNOVIUM JOSEP DR: Dr. Brock Stone MD Tissues: Synovial tissue of joint, NOS Procedures: Surgery Specimen Level IV HEADER OPERATION: Arthroscopy, ankle, synovectomy, open modified Brostrum repair PRE-OP DIAGNOSIS: Sprain of anterior talofibular ligament right ankle; sprain of deltoid ligament of right ankle TISSUE SUBMITTED: Right ankle synovium MICROSCOPIC DIAGNOSIS Right ankle synovium, biopsy: Mild reactive change. AM:luis angel 05/04/2020 MICROSCOPIC DESCRIPTION Slides are reviewed. GROSS DESCRIPTION Received in fixative is one container labeled with the patient's name and designated right ankle synovium. The specimen consists of multiple irregular fragments of light zhang-white soft tissue that in aggregate measure 2.2 x 1 x 0.1 cm. The specimen is totally submitted in one cassette. / AM:luis angel 05/03/20 TC:5 CPT: 72013
--- NOTE | 2020-05-02 05:19 | HP_ITS ---
I have examined the patient the following changes are noted: Intake Intake Visit Reasons: RIGHT ANKLE Chief Complaint: Right ankle/foot injury Allergies No Known Allergies Allergy (Verified 02/20/20 14:34) [facility] Medical History 38 weeks gestation of (Acute) Uterine contractions at greater than 20 weeks of gestation (Acute) Breech presentation of fetus delivered (Acute) Surgical History Status post section (Acute) History of removal of skin mole (Acute) Hx of biopsy (Acute) Family History Grandmother Breast cancer Son Heart disease Social History (Updated 04/19/20 @ 09:[address] Barbara Cabral DO) Smoking Status: Former smoker alcohol intake: current alcohol intake frequency: a few times a month HPI RIGHT ANKLE: Surgical H&P: Yes Details: Parts of this documentation were recorded by a scribe, this documentation accurately reflects the service provided and the decisions made by me, Dr. Barbara Cabral DO 04/17/20 [id number]. JERAMY PALAFOX is a 29 year old F here today for F/U after MRI of the right ankle. She was given the MRI results over the phone with [place] Bruce. Patient is here to discuss treatment option. Patient continues to have mostly lateral ankle pain. occasionally she will have pain over her Achilles. Denies numbness, tingling or other associated symptoms. She has completed immobilization and PT which has not been effective. States recurrent instability despite conservative treatment including bracing/boot/PT. ROS Const Reports weakness Musc Reports system reviewed and no additional complaints, except as docu, Reports abnormal walking, Reports joint pain, Reports joint swelling, Denies numbness, Denies stiffness, Denies tingling, Reports other (throbbing) Skin/Breast Denies system reviewed and no additional complaints, except as docu, Denies dry skin, Denies redness, Denies lesions, Denies new lesions, Denies non-healing lesions, Denies itching, Denies rash, Denies skin ulcer, Denies sores, Denies wounds Neuro Yes system reviewed and no additional complaints, except as docu, Yes abnormal walking, No numbness, Yes radiating pain, No tingling, Yes weakness Ortho Exam General General: Yes no acute distress Neurologic: Yes alert, Yes oriented x3 Psychologic: Yes reasonable and appropriate Right Foot/Ankle Skin/Wound: Yes Soft Tissue Swelling; no Ecchymosis or Erythema Exam: present TTP Lateral Malleolus, TTP ATFL and TTP CFL; absent TTP Medial Malleolus, TTP Deltoid Ligament, eversion normal or inversion normal Tests: Taylor Test: 1, Squeeze Test: 1 Anterior Drawer: 1 ANKLE: no joint effusion swelling anterior to medial malleolus no peroneal subluxation pain with eversion pain with inversion eversion 8 inversion 12 pain with drawer test and laxity with anterior drawer compared to left side with pain Assessment & Plan Problems 1. Sprain of anterior talofibular ligament of right ankle, subsequent encounter S93.491D 2. Sprain of deltoid ligament of right ankle, subsequent encounter S93.421D Plan Personally reviewed patients MRI of the right knee. Patient educated that she has High-grade partial thickness ATFL tear and a acute low-grade deltoid ligament sprain without tear. Reviewed the pre-operative plans with the patient. Risks and benefits of the procedure were fully explained, including but not limited to infection, neurovascular injury, continued pain, arthritis, stiffness, need for further surgery, re-injury, DVT, PE, general risks of anesthesia, and loss of limb or life. The patient understands all the risks and does wish to proceed with written consent right ankle arthroscopy synovectomy, open modified Brostrom repair with Arthrex internal brace system, possible superior retinaculum, repair as indicated. She will be in PT after and she may be able to begin weaning into jogging 6 weeks post op. Follow up 2 weeks post op or sooner if pain, swelling, numbness or associated symptoms, or concerns develop. All questions answered. Patient in agreement of plan. Coding Level of Care Code Off vis,est,level 4 Diagnoses Sprain of anterior talofibular ligament of right ankle, subsequent encounter S93.491D ??Encounter type: subsequent encounter Sprain of deltoid ligament of right ankle, subsequent encounter S93.421D ??Encounter type: subsequent encounter
[2020-05-02 09:12] LABS: Internal QC Validated? YES +Cl - CLEAR BKGD; Pregnancy, Urine Negative Negative
[2020-05-02] MEDS: Lactated Ringers 1,000 ML 100 ML IV ×2 (09:19→15:51)
--- NOTE | 2020-05-02 10:29 | RAD_ITS ---
STUDY: X-RAY - RIGHT ANKLE REASON FOR EXAM: Arthroscopic repair. TECHNIQUE: 2 intraoperative images of the ankle. COMPARISON: Radiographs 02/09/2020. FINDINGS: There is localization of the lateral tibia in the region of the anterior talofibular ligament attachment. 4 seconds of fluoroscopy time was used. Electronically Signed: Josafat Khan MD at 14:11 EST Tel , Service support , RAD/Ankle min 3 Views
[2020-05-02] MEDS: Epinephrine (1 mg/ml) 1 MG/ML VIAL (10:35)
[2020-05-02] MEDS: Cefazolin 2 GM in 0.9% Normal Saline 100 ML IV (11:04)
--- NOTE | 2020-05-02 12:46 | DCINST_ITS ---
Discharge Diet: No Restrictions - nwb right leg, elevate toes above nose, call with concerns, follolw up in 2 weeks, keep incision clean,dry and intact Discharge Activity: May Not Drive May shower in (days): 1 Ice area for (Minutes): 20 - Every hour while awake. Weight Bearing Status: Weight bearing as tolerated Keep extremity elevated above heart level: Operative Extremity Call your doctor if your incision/area has: Continuous Slow Oozing, Sudden Increased Bleeding, Increased Pain/ Swelling, Increased Redness, Foul Smelling Discharge Call your doctor if you observe: Fever of 101 or Higher, Coldness, Increased Pain, Numbness or Tingling, Change in Color, Calf discomfort Allergies/Adverse Reactions: Allergies No Known Allergies Allergy (Verified 04/25/20 14:02) Medications to take at Discharge etodolac 500 mg tablet 500 mg PO BID #60 tab 02/20/20 Ondansetron [Zofran] 8 mg PO Q8H PRN PRN #20 tab 05/02/20 Oxycodone HCl/Acetaminophen [Percocet 5/325] 1 - 2 tab PO Q6H PRN PRN 5 Days #28 tab 05/02/20 The following prescriptions were given: Oxycodone HCl/Acetaminophen [Percocet 5/325] 1 - 2 tab PO Q6H PRN PRN 5 Days #28 tab PRN Reason: Pain Transmission Status: Sent to [facility] Ondansetron [Zofran] 8 mg PO Q8H PRN PRN #20 tab PRN Reason: Nausea Transmission Status: Pending to [facility] Primary Care Physician: Azeem Stone MD [Primary Care Provider] - Test Results: Test results from this visit will be discussed in further detail at your follow- up appointment, if applicable. Please Follow Up With: Barbara Cabral, DO - [phone]
--- NOTE | 2020-05-02 12:47 | OP.PCM_ITS ---
Report of Operation Date of Procedure: 05/02/20 Pre-Operative Diagnosis: right ankle lateral instability, peroneal tenosyn ovitis, synovitis/chondromalacia tibiotalar joint Post-Operative Diagnosis: same Surgery/Procedure Performed:: right ankle arthroscopy, synovectomy, c hondroplasty; open peroneal tenosynovectomy/imbrication of sheath, open internal brace/arthrex with atfl imbrication/modified brostrum physician/ophthalmologist: [place] Bruce Type of Anesthesia:: General Anesthesiologist: James Gould Specimen's removed: synovium from around peroneal tendon at level of ankle joint Estimated Blood Loss (mL): min Fluids Replaced: 900cc lr Description of Procedure: Preop note Patient is a 29-year-old female who sustained an twisting ankle injury to her right ankle. 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 Risk benefits alternatives surgery discussed with patient. Patient failed conservative treatment elected proceed with right ankle arthroscopy. Risk include but not limited to blood loss, blood clot, infection, neurovascular, failure procedure, loss of life and loss of limb. Patient is aware would like proceed with right ankle arthroscopy open Brostr?m repair with internal brace repair as indicated. Operative note Patient seen in preop holding area. Patient was evaluated and noted she was had a positive drawer and pain posteriorly with eversion. She had no pain on the medial side and was not tender along her deltoid ligament. Site was marked. Brought to the operating room placed supine on the operating table. Signed, anesthesia, antibiotics were administered. The right leg was prepped and draped usual sterile technique with a tourniquet around her upper thigh. All bony promises well-padded SCDs placed on her contralateral limb. We marked out our incision for bony for bony landmark placement for our internal brace for the posterior distal tibia extending posteriorly and extending in a curvilinear fashion anteriorly around the lip of the distal fibula. Right leg with an elevate exsanguinated tourniquet was raised her pressure of 250 torr. We began with our diagnostic arthroscopy. We used an 18-gauge needle to just medial to the anterior tib insufflate the joint with about 40 cc of normal saline we then made a small incision with an 11 blade and dissected down with mosquitoes and had good return of the fluid knowing we are intra-articular. We then began our diagnostic arthroscopy. The tibiotalar surface has a little bit of chondromalacia grade 2 fibrillated changes in the distal tibia there is some synovitis in the anterior medial recesses is an anterior lateral recess. We then created an anterior lateral portal under direct visualization. We used a shaver to trim back the loose cartilage pieces in the end of the distal tibia as well as some synovitis that was anterior lateral as well. We then moved and looked at the cartilage surface of the tibiotalar joint as well as medial lateral noted there was no loose bodies and no cartilage lesions. We then moved her open part of her case. We made a hook incision around the posterior aspect of the fibula extending anteriorly. We used a 15 blade to cut using skin we dissected down tenotomies we were able to to visualize the started proximally visualize the peroneal tendons we excised the open up the sheath and there was extensive synovitis around the peroneal tendons this was sent to pathology for further eval evaluation. There were no loose there is no low-lying fibular peroneal muscle there is some inflammation around the peroneal tendons and cells because on physical exam the she had a good groove and no subluxate of the tendons we did not feel the need to repair her SPR tightly however we did imbricate the sheath at the level just proximal because. That was the site of irritation of the tendon so this was imbricated the sheath just itself proximal to the FCR. We then moved her open internal brace. We dissected down just anterior to in the distal fibula about 2 cm. We then measured for and drilled with a 3 5 for our internal brace on the fibular side as well as on the talus we confirmed with fluoroscopy on the talar side we had good positioning and good angle of our 4.75 talar anchor. We then tapped both sites. We placed our internal brace suture anchor into the talus. We then repaired we then after elevating the ATFL we did cut a piece and off cut a portion of it off in order to imbricate the ATFL to the periosteum of the distal fibula. I did this in a pants over vest configuration. This imbricated the ATFL we then measured the suture placed the foot in about neutral position and the ankle in about neutral positioning in the place the 3.5 internal brace anchor into the fibula. Then performed an anterior drawer which was negative. We further imbricated this use our inferior peroneal retinaculum over top of and reinforce that in standard modified Brostr?m technique with a #2 FiberWire. We then irrigated the incision with copious muscle sterile saline. We closed the skin with 3-0 Vicryl and running 4 Monocryl Steri-Strips, sterile dressings were applied, sterile dressings and a posterior splint with slight eversion was placed on the right ankle. Patient taught procedure well no complication transfer recovery room in stable condition. Postoperative Nonweightbearing right leg Follow-up in 2 weeks [facility] prescription Discussed with Michelle disclaimer This note was generated with Woto dictation software. It may contain incorrect words, spelling, and punctuation that were not noted in checking the note before signing.
[2020-05-02] MEDS: Bupiv/Epi 0.25% 30 ML Vial (13:03)
--- NOTE | 2020-05-02 14:02 | SUR.PHASEI ---
Leeroy Castillough at bedside giving nerve block
== END 2020-05-02 16:32 | disposition home or self-care (01) ==
LOC: SDC 08:48 → AC 08:49
PROVIDERS: PCP Family Medicine; Referring Provider Orthopaedic Surgery; Visit Provider Orthopaedic Surgery
PROC: (CPT 27658; principal; 2020-05-02 10:20)
DX: S93.421A Sprain of deltoid ligament of right ankle, initial encounter (principal); X58.XXXA Exposure to other specified factors, initial encounter; Y93.9 Activity, unspecified; Y92.9 Unspecified place or not applicable; Z20.828 Contact with and (suspected) exposure to other viral communicable diseases; M25.371 Other instability, right ankle; Z87.891 Personal history of nicotine dependence; S93.491A Sprain of other ligament of right ankle, initial encounter; M94.271 Chondromalacia, right ankle and joints of right foot
CPT/HCPCS: 27658; 27698; 29895; 73610; 76000; 81025; 87426; 88305; C9803; J7120; J2405

== ENCOUNTER 2020-06-26 16:00 | Outpatient (RCR) | payer BC, SELFPAY ==
--- NOTE | 2020-05-24 18:51 | HP.PTEVAL ---
Patient's Visit Information JERAMY PALAFOX is a 29 year old F referred to Physical Therapy by Dr. Barbara Cabral DO with a diagnosis of s/p R ankle arthroscopy. Date of Evaluation: 05/24/20 Physical Therapist: Sebastien Yan, DPT, OCS, CSCS - Visit Plan Frequency: 3x /Week Duration: 4-6 Weeks Plan: 3x/week for 4-6 weeks for. 1. ankle AROM/PROM and scar and STM. Progression of home stretching. 2. ankle strength adn proprioceptive exercises. 3. gait progressiona dn return to ports(running) when allowed by doctor. Pt is currently WBAT in CAM boot according to script. ice if needed. - Subjective R ankle hurt last fall stepping out of car BW and inverted adn felt a pop. Swollen adn sore up until surgery. No previous problems. Surgery was 3 weeks ago on 05/02 adn doctor cleaned it out and tightened it up. NWB x 2 weeks, boot on NWB x 1 week and then a little WB today without boot. [place] OK. Feels stiff. Not painful. Does get some discomfort at night. Pointing toe will give her discomfort. Doctor said she could give small doses without boot. Sleepign OK at night. 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 Wants to run again. Wants to be able to jump on [employer] with kids. Has steps at home and they are slow and modified but sfe. - Pain R ankle Pain Intensity (Out of 10): 0 Pain Intensity Range: 0, 5 Comment: tingle in toe - Objective Walks into PT in ortho boot on R LE and donned and doffed I. Incision is lateral at R ankle and steristrips are in place, incision is dry adn healing well without signs of excessive redness , heat or swelling. Ankle is tight at 0 DF, 8 inversion, 10 eversion and 33 PF on R side actively. L side 60 PF, 8 DF, 33 inv and 20 eversion. Strength is 4-/5 in all ankle motions except eversion whcih is 3+. No pain with resisted testing today just pulling with end range of motion inversion, PF, DF. SLS R is fair balance adn able to march easily. Walks without mina with decent gait pattern and no pain, avoids pushoff. - Goals Goal 1:: Full aROM R ankle without pain Goal Time Frame: 2-4 Weeks Goal 2:: Strength 4+/5 all R ankle motions without pain. Goal Time Frame: 4-6 Weeks Goal 3:: Walk adn steps without deficits as allowed by doctor and in community Goal Time Frame: 4-6 Weeks Goal 4:: Plan to return to running Goal Time Frame: 4-6 Weeks Goal 5:: ADLs done i normal time adn without pain. Goal Time Frame: 4-6 Weeks - Rehabilitation Potential Physical Therapy Diagnosis: s/p R ankle scope adn tightening. Rehabilitation Potential: Good - Anticipated Interventions Patient/Client Instruction: Educate patient on: Condition, Plan of Care For the Purpose of:: To decrease pain, To increase ROM, To improve muscle performance and motor function, To increase tolerance to activity/condition/position, To improve ability of physical actions for home/community/work/leisure Therapeutic Exercise to Include: Strength training, Flexibilty training, Gait and locomotor training, Neuromotor development, Passive ROM, Active ROM For the Purpose of:: To decrease pain, To improve muscle performance and motor function, To increase tolerance to activity/condition/position, To improve ability of physical actions for home/community/work/leisure, To improve gait and locomotor functions Manual Therapy Techniques to Include: Scar massage, Passive ROM, Soft tissue mobilization For the Purpose of:: To decrease pain, To increase ROM, To increase tolerance to activity/condition/position Cryotherapy (ice pack, ice massage): Yes For the Purpose of:: To decrease pain, To decrease swelling/inflammation Thank you for the opportunity to evaluate your patient. For Medicare and Medicare HMO plans, please review the plan of care and approve it. It will need to be FAXED BACK to us at [phone] for Medicare purposes. For Medicare only, by signing this I certify the plan of care. Please let me know if there are questions or concerns regarding this plan of care. Physician Signature: Date:
--- NOTE | 2020-06-18 10:27 | HP.PTREVAL_ITS ---
Dr. Barbara Cabral, DO, It has been my pleasure to treat JERAMY PALAFOX over the last 9 visits for s/p R ankle arthroscopy. Please see the progress note below for an update on the physical therapy plan of care! Subjective: I feel really good. Walked at [facility] last week on hils without trouble. Has not run. Squats can bring heal up but can do them. Other activities are normal. Did depth ball over weekend without a problem. To doctor in two weeks. HEP: [id number] with GTB. daily. Objective/Function: Tolerating short jog today with minor soreness and no antalgia. Hesitant to jump in pace and for height, avoids R LE in landing. AROM is fully functional and still slightly shy of L LE in PF and inversion which is not a bad thing. strength in R ankle 4+/5 without pain Plan Plan: 2x/week for 3-4 weeks to progress back to full run, plyo exercises and agility. Pt can do stretching adn strengthening on own at home. Will also progress flat surface jog at home one minute every other day. Goals Goal 1:: Full aROM R ankle without pain Goal Time Frame: 2-4 Weeks Goal Progress: Goal Met Goal 2:: Strength 4+/5 all R ankle motions without pain. Goal Time Frame: 4-6 Weeks Goal Progress: Goal Met Goal 3:: Walk adn steps without deficits as allowed by doctor and in community Goal Time Frame: 4-6 Weeks Goal Progress: Goal Met Goal 4:: Plan to return to running Goal Time Frame: 4-6 Weeks Goal Progress: Progressing Goal 5:: ADLs done i normal time adn without pain. Goal Time Frame: 4-6 Weeks Goal Progress: Goal Met Goal 6:: Pt jump and land without compensation and jog one mile without soreness Goal Time Frame: 2-4 Weeks Goal Progress: NEW GOAL Anticipated Interventions Patient/Client Instruction: Educate patient on: Condition, Plan of Care For the Purpose of:: To decrease pain, To increase ROM, To improve muscle performance and motor function, To increase tolerance to activity/condition/position, To improve ability of physical actions for home/community/work/leisure Therapeutic Exercise to Include: Strength training, Flexibilty training, Gait and locomotor training, Neuromotor development, Passive ROM, Active ROM For the Purpose of:: To decrease pain, To improve muscle performance and motor function, To increase tolerance to activity/condition/position, To improve ability of physical actions for home/community/work/leisure, To improve gait and locomotor functions Manual Therapy Techniques to Include: Scar massage, Passive ROM, Soft tissue mobilization For the Purpose of:: To decrease pain, To increase ROM, To increase tolerance to activity/condition/position Cryotherapy (ice pack, ice massage): Yes For the Purpose of:: To decrease pain, To decrease swelling/inflammation Please do not hesitate to contact me at [phone] by phone or if you have questions or concerns regarding this new plan of care! Sincerely, Sebastien Yan, DPT, OCS, CSCS
--- NOTE | 2020-08-21 12:36 | HP.PT.NRP ---
JERAMY PALAFOX was seen in my office for initial evaluation on 05/24/20. The following Plan of Care was established for this patient: Initial Frequency: 3x /Week Initial Duration: 4-6 Weeks Patient/Client Instruction: Educate patient on: Condition, Plan of Care For the Purpose of:: To decrease pain, To increase ROM, To improve muscle performance and motor function, To increase tolerance to activity/condition/position, To improve ability of physical actions for home/community/work/leisure Therapeutic Exercise to Include: Strength training, Flexibilty training, Gait and locomotor training, Neuromotor development, Passive ROM, Active ROM For the Purpose of:: To decrease pain, To improve muscle performance and motor function, To increase tolerance to activity/condition/position, To improve ability of physical actions for home/community/work/leisure, To improve gait and locomotor functions Manual Therapy Techniques to Include: Scar massage, Passive ROM, Soft tissue mobilization For the Purpose of:: To decrease pain, To increase ROM, To increase tolerance to activity/condition/position Cryotherapy (ice pack, ice massage): Yes For the Purpose of:: To decrease pain, To decrease swelling/inflammation This patient was last seen in our office 06/26/20. Pertinent comments regarding their Physical therapy will appear below: Pt seen 10 visits of POC and cancelled last two visits. She was 90% better. At this point, it has been over 6 weeks and I will discontinue due to nonattendance. At this point I will be discontinuing this patient from physical therapy. I would be happy to see this patient again in the future if found appropriate by the physician. Thank you! Sebastien Yan, DPT, OCS, CSCS
== END 2020-06-26 19:00 | disposition home or self-care (01) ==
LOC: PT 16:00
PROVIDERS: PCP Family Medicine; Referring Provider Orthopaedic Surgery; Visit Provider Orthopaedic Surgery
DX: Z98.890 Other specified postprocedural states (principal)
CPT/HCPCS: 97110; 97140; 97161; 97530

== ENCOUNTER 2020-12-20 04:27 | Emergency (ER) | payer BC, SELFPAY ==
[2020-12-20 04:27] VITALS: BP 115/55; PULSE 76; RESP 18; TEMP 36.4; O2SAT 100; BMI 28.0
--- NOTE | 2020-12-20 04:53 | CT_ITS ---
STUDY: CT ABDOMEN AND PELVIS WITH CONTRAST REASON FOR EXAM: Female, 30 years old. RLQ pain RADIATION DOSAGE (If Supplied By Facility): CTDIvol = ( 8.91 ) mGy, DLP = ( 567.04 ) mGycm TECHNIQUE: Transaxial 3.75 mm images were obtained from the dome of the diaphragm to the symphysis pubis without oral contrast. IV 100mL Isovue-300 was administered. Sagittal and coronal images were reconstructed. Individualized dose optimization techniques were used for this CT. COMPARISON: None. FINDINGS: The visualized lung bases are unremarkable. The visualized portions of the heart are within normal limits. Normal liver. Normal gallbladder and extrahepatic biliary system. Normal spleen. Normal pancreas. Normal bilateral adrenal glands. Normal right kidney. Nonobstructing left upper renal pole calculus of 0.4 cm. Insufficient right ovarian vein with enhancement and few pelvic varices. No contra lateral filling. Normal visualized stomach. Normal small intestine. Normal colon. The appendix is visualized and appears normal. Image 38-49 series 602. There is adjacent mild fluid in the cul-de-sac. There is an adjacent indistinct enhancing low-attenuation measuring approximately 1.2 x 2.8 x 1.6 cm, enhancement appears to arise off the gonadal vein. Normal abdominal aorta. Normal inferior vena cava. Normal retroperitoneum. Normal urinary bladder. Uterus contains an intrauterine device in good position. Trace free fluid in the pelvis, which can be physiologic. Normal abdominal wall. Normal osseous structures. CT/Abdomen/Pelvis W IV Cont ONLY IMPRESSION: No overt appendicitis detected. There is fluid along the inferior cortical colonic gutter and appendix, with an adjacent slightly enhancing low-attenuation, possibly a component of the ovary such as an involuting cyst. Clinical and laboratory correlation advised. Mild pelvic fluid. Intrauterine device in good position. There is no abscess, collection, perforation or obstruction. Incompetent left gonadal vein. Nonobstructing left renal calculus. Electronically Signed: Alycia Norman MD at 6:09 EDT , Service support ,
--- NOTE | 2020-12-20 04:54 | ED.VIS.GI ---
HPI HPI - GI History of Present Illness Chief Complaint: Abd Pain Informant: patient Abdominal Pain/Flank Pain Onset: Hours (1-2) Context: Sudden Onset (woke up from sleep) Timing: Continuous and Waxes and wanes Quality: Aching and Sharp Location: RLQ (w/o radiation or migration) Current Severity: Severe Maximum Severity: Severe Worsened by: Movement Relieved by: Nothing Nausea/Vomiting/Emesis GI Symptom: Positive for Nausea and Vomiting Onset: Today Quality: Positive for Nonbilious; Negative for Blood streaks Diarrhea/Melena/Hematochezia GI Symptom: Negative for Diarrhea, Melena and Hematochezia Associated Symptoms Associated Symptoms: Negative for Dysuria, Frequency, Hematuria and Urgency Narrative Narrative: 30-year-old healthy presents saying this may feel like an ovarian cyst, she has had several rupture in the past, but this is worse pain and may feel little different. Woke her up from sleep. Associated with vomiting. Has an IUD, her last cycle was about a week ago, but she is usually irregular. She denies any urinary symptoms or other GI symptoms recently, no recent illness. She was feeling fine yesterday before she went to bed. [facility] Medical History 38 weeks gestation of Breech presentation of fetus delivered History of ovarian cyst Uterine contractions at greater than 20 weeks of gestation Home Medications Medical Marijuana PRN 12/20/20 [History Last Taken Unknown] naproxen 500 mg PO BID PRN #20 tab 12/20/20 [Rx Last Taken Unknown] Allergy/AdvReac Type Severity Reaction Status Date / Time No Known Allergies Allergy Verified 12/20/20 04:31 Family History Grandmother Breast cancer Son Heart disease Surgical History (Updated 05/02/20 @ 12:[address] Barbara Cabral DO) History of removal of skin mole Hx of biopsy Status post section Social History Smoking Status: Never smoker alcohol intake: current alcohol intake frequency: a few times a month ROS ROS ED Constitutional Constitutional ED: Denies chills or fever(s) Eyes Eyes: Denies change in vision or diplopia ENT ENT ED: Denies rhinorrhea or sore throat Cardiovascular Cardiovascular: Denies chest pain or palpitations Respiratory/Chest Respiratory/Chest: Denies cough or dyspnea Gastrointestinal Gastrointestinal: Reports as per HPI, abdominal pain, nausea and vomiting; Denies diarrhea Genitourinary Genitourinary ED: Denies dysuria or hematuria Musculoskeletal Musculoskeletal: Denies back pain or neck pain Integumentary Denies abscess or rash Neurologic Neurologic: Denies headache(s), paresthesias or weakness Psychiatric Psychiatric: Denies anxiety or suicidal thoughts EXAM Physical Exam Const Vital Signs: 12/20/20 04:27 Temperature 97.6 F L Temperature Source Temporal Pulse Rate 76 Respiratory Rate 18 Blood Pressure 115/55 L Blood Pressure Mean 75 Pulse Ox 100 Oxygen Delivery Method Room Air Positive well nourished and well developed General Appearance ED: well developed and NAD HEENT Reports moist mucous membranes normocephalic and atraumatic Eyes PERRL and EOMs intact bilaterally Neck full ROM and supple Resp normal respiratory effort and clear to auscultation bilaterally Cardio regular rate, regular rhythm and no murmurs GI non-distended GI Narrative: Tender in right lower quadrant mostly McBurney's point, not down in the pelvis further. Positive Rovsing's, negative obturator, positive psoas signs. No guarding or rebound tenderness. Auscultation: normoactive bowel sounds Palpation: soft Back/Spine no CVA tenderness General Back: other FROM Extremity normal to inspection General Extremety ED: Negative for edema, pulses abnormal or tenderness General Extremity: Negative for edema or pulses abnormal Neuro oriented x3, CN's II-XII intact bilaterally and no sensory deficits noted Sensorium / Orientation: awake and alert Motor Exam: strength 5/5 throughout Skin no rashes or lesions noted and no wounds MDM MDM MDM Narrative Medical decision making narrative: The history is less consistent with appendicitis but the exam is. Patient presents around 4:30 AM when ultrasound is not available, so her symptoms were treated and CT with IV contrast was obtained initially along with labs. These are noted as below. I believe the urine is contaminant with lots of squamous epithelial cells. I will send her for a culture to ensure the positive nitrite does not indicate a true infection. Her CT shows no acute appendicitis, and findings that basically are consistent with a ruptured ovarian cyst as the patient indicated in her history. She is feeling much better after Toradol and is comfortable. She was not in distress to begin with. I do not think she needs to wait hours until the dayshift ultrasound techs arrive, I do not think this is torsion and I explained all of that to her. She has an appointment with her OB next week, her IUD is Mirena, advised to discuss options for treatment with them. We discussed analgesics for pain management at home, she is not interested in narcotics and would like to use NSAIDs and Tylenol as needed. Given prescription for Naprosyn. Lab Data Attestation: I reviewed the patient's lab results. Labs: Laboratory Results - last 24 hr 12/20/20 12/20/20 12/20/20 04:30 04:30 05:00 WBC 6.1 RBC 4.01 L Hgb 12.6 Hct 37.9 MCV 94.5 MCH 31.4 MCHC 33.2 RDW Std Deviation 42.6 RDW Coeff of Juliette 12.3 Plt Count 247 MPV 9.3 Immature Gran % (Auto) 0.200 Neut % (Auto) 55.7 Lymph % (Auto) 35.1 [place] % (Auto) 7.0 Eos % (Auto) 1.3 Baso % (Auto) 0.7 Absolute Neuts (auto) 3.4 Absolute Lymphs (auto) 2.14 Nucleated RBC % 0 Sodium 139 Potassium 3.6 Chloride 107 Carbon Dioxide 28.0 Anion Gap 4 L BUN 11 Creatinine 0.89 Estim Creat Clear Calc 75.76 Est GFR (MDRD) Af Amer 95 Est GFR (MDRD) Non-Af 79 BUN/Creatinine Ratio 12.4 Glucose 113 H Calcium 8.8 Urine Color Yellow Urine Clarity Sl. Cloudy Urine pH 5.0 Ur Specific [place] 1.025 Urine Protein 30 H Urine Glucose (UA) Normal Urine Ketones Negative Urine Occult Blood 150 H Urine Nitrite Positive H Urine Bilirubin Negative Urine Urobilinogen Normal Ur Leukocyte Esterase 25 H Urine RBC 5-10 SEEN Urine WBC 0-5 SEEN Ur Squamous Epith Cells 10-25 SEEN Calcium Oxalate Crystal RARE Urine Bacteria 4+ Urine Mucus 0 SEEN Urine Test Negative Radiography Diagnostic Testing: Radiology Impression Abdomen/Pelvis CT 12/20/20 04:53 IMPRESSION: No overt appendicitis detected. There is fluid along the inferior cortical colonic gutter and appendix, with an adjacent slightly enhancing low-attenuation, possibly a component of the ovary such as an involuting cyst. Clinical and laboratory correlation advised. Mild pelvic fluid. Intrauterine device in good position. There is no abscess, collection, perforation or obstruction. Incompetent left gonadal vein. Nonobstructing left renal calculus. Electronically Signed: Alycia Norman MD at 6:09 EDT , Service support , Discharge Plan Triage Chief Complaint: Abd Pain ED Provider: Heladio Kumar Dx/Rx/DC Orders Clinical Impression: Rupture of cyst of right ovary Instructions: ED Ovarian Cyst Prescriptions: New naproxen 500 MG tablet 500 mg PO BID PRN Qty: 20 RF: 0 No Action Medical Marijuana PRN (Reason: Anxiety) RF: 0 Primary Care Provider: Azeem Stone Referrals: OB, your [Other] (As scheduled or sooner if needed) Azeem Stone MD [Primary Care Provider] - Disposition Disposition: Home, Self Care
[2020-12-20 05:00] LABS: Absolute Lymphocyte Count 2.14 X10^3/uL (0.83-4.51); Absolute Neutrophil Count 3.4 X10^3/uL (2.0-7.7); Basophil# 0.04 X10^3/uL; Basophil% 0.7 % (0-1); Eosinophil# 0.08 X10^3/uL; Eosinophils% 1.3 % (0-5); Hematocrit 37.9 % (37-47); Hemoglobin 12.6 g/dL (12.0-15.0); Lymphocyte # 2.14 X10^3/ul (0.83-4.51); Lymphocyte % 35.1 % (19-41); Mean Corp Hgb Conc 33.2 g/dL (32-36); Mean Corpuscular Hgb 31.4 pg (27.0-32.0); Mean Corpuscular Volume 94.5 fL (81-99); Mean Platelet Vol. 9.3 fl (6.2-12.0); Monocyte# 0.43 X10^3/uL; NRBC Flagged by Analyzer 0 % (0-5); Neutrophil % 55.7 % (47-70); Platelet Count 247 K/mm3 (150-450); RBC Distribution Width CV 12.3 % (11.6-14.6); RBC Distribution Width SD 42.6 fl (35.1-43.9); Red Blood Count 4.01 M/mm3 (4.2-5.4); White Blood Count 6.1 K/mm3 (4.4-11.0)
[2020-12-20] MEDS: Ondansetron 4 MG/2 ML Vial IV (05:03)
[2020-12-20] MEDS: Ketorolac 30 MG/ML Syringe IV (05:03)
[2020-12-20] MEDS: 0.9% Normal Saline 1,000 ML 1000 ML IV (05:03)
[2020-12-20 05:09] LABS: Anion Gap 4 (5-15); BUN 11 mg/dL (7-18); BUN/Creat Ratio 12.4 RATIO (10-20); Calcium,Total 8.8 mg/dL (8.5-10.1); Chloride 107 mmol/L (98-107); Creatinine, Serum 0.89 mg/dL (0.55-1.02); EST Glomerular Filtration Rate 79 mL/min (>60); Est Glom Filt Rate - Afr Amer 95 mL/min (>60); Estimated Creatinine Clearance 75.76 ml/min; Glucose 113 mg/dL (74-106); Potassium 3.6 mmol/L (3.5-5.1); Sodium Level 139 mmol/L (136-145)
[2020-12-20 05:10] LABS: Mucous, Urine 0 SEEN /hpf (<or=2+)
[2020-12-20 05:12] LABS: Color, Urine Yellow (Yellow); Glucose, Dipstick Normal (Normal); Ketone-Dipstick Negative (Negative); Leukocyte Esterase-Dipstick 25 /ul (Negative); Nitrite-Dipstick Positive (Negative); Occult Blood-Urine 150 /ul (Negative); Protein-Dipstick 30 mg/dl (Negative); Specific Gravity, Urine 1.025 (1.002-1.030); Urine Bilirubin Dipstick Negative (Negative); Urine Clarity Sl. Cloudy (Clear); Urine Urobilinogen Normal (Normal)
[2020-12-20 05:22] LABS: Red Blood Cells-Urine 5-10 SEEN /hpf (0-5); White Blood Cells 0-5 SEEN /hpf (0-5)
[2020-12-20 05:23] LABS: Bacteria 4+ /hpf (None Seen); Calcium Oxalate Crystals Ur RARE /hpf (<or=2+); Internal QC Validated? YES +Cl - CLEAR BKGD; Pregnancy, Urine Negative Negative; Squamous Epithelial Cells - UA 10-25 SEEN /hpf (5-10)
[2020-12-20 06:54] VITALS: BP 114/54; PULSE 60; RESP 18; O2SAT 97
== END 2020-12-20 06:56 | disposition home or self-care (01) ==
PROVIDERS: Emergency Provider Emergency Medicine; PCP Family Medicine
DX: N83.201 Unspecified ovarian cyst, right side (principal)
CPT/HCPCS: 74177; 80048; 81001; 81025; 85025; 87086; 87088; 87186; 96361; 96374; 96375; 99283; J7030; Q9967; A4216; J2405

== ENCOUNTER → 2021-02-26 15:44 | Outpatient (CLI) | payer BC, SELFPAY ==
[2021-03-06 19:44] LABS: HPV APTIMA, High Risk Negative (Negative)
== END ==
PROVIDERS: PCP Family Medicine; Visit Provider Obstetrics & Gynecology
DX: Z12.4 Encounter for screening for malignant neoplasm of cervix (principal)
CPT/HCPCS: 87624; 88175; G0145

== ENCOUNTER 2021-06-07 14:21 | Outpatient (CLI) | payer BC, SELFPAY ==
--- NOTE | 2021-06-07 14:28 | BI_ITS ---
MAMMOGRAPHY - BILATERAL DIAGNOSTIC REASON FOR EXAM: Female, 30 years old. Several year history of right breast lump. PERTINENT HISTORY: Grandmother with breast cancer. TECHNIQUE: Digital bilateral breast alfredo (3D mammographic acquisition) in the CC and MLO projections. 2-D mediolateral oblique (MLO) and craniocaudad (CC) views of both breasts were obtained. CAD: Full Field Digital Mammography with Computer Added Detection was performed. COMPARISON: Comparison is made with prior study dated 11/03/2019. FINDINGS: Breast Composition: The breasts are extremely dense, which lowers the sensitivity of mammography. A tissue clip marker is seen within a 2.4 cm x 2.4 cm well-defined nodule in the anterior upper lateral aspect of the left breast. This was seen to be a fibroadenoma. Stable benign-appearing bilateral axillary lymph nodes. No other significant abnormalities are identified. BI/DIAG MAMM W/CAD, BILAT IMPRESSION: Stable bilateral diagnostic mammogram. With the patient''s history of a palpable lump in the inferior medial portion of the right breast, correlation with ultrasound is recommended. ASSESSMENT CATEGORY: BIRADS Category 0: Incomplete. Need additional imaging evaluation. A letter regarding these results will be sent to the patient by the facility within 30 days. Approximately 10% of breast cancers are not detected by mammography. A normal mammogram should not delay biopsy of a clinically suspicious abnormality. Electronically Signed: Alli Fonseca MD at 15:24 EST ,
--- NOTE | 2021-06-07 15:30 | US_ITS ---
STUDY: ULTRASOUND BREAST - RIGHT REASON FOR EXAM: Female, 30 years old. Palpable lump in the right breast. TECHNIQUE: Axial and longitudinal images of the RIGHT breast were performed with a high resolution ultrasound transducer. # OF IMAGES: 11 COMPARISON: Comparison is made with prior mammogram done earlier in the day as well as prior ultrasound of the right breast dated 11/03/2019. FINDINGS: RIGHT Breast: The lower medial aspect of the right breast was examined by ultrasound. There is dense fibroglandular tissue. No sonographic abnormalities seen. US/Breast Limited Unilateral IMPRESSION: No sonographic abnormality is seen. ASSESSMENT CATEGORY: BIRADS Category 1: Negative. A letter regarding these results will be sent to the patient by the facility within 30 days. Electronically Signed: Alli Fonseca MD at 8:17 EST ,
== END 2021-06-07 23:59 | disposition home or self-care (01) ==
LOC: OPBI 14:23
PROVIDERS: PCP Family Medicine; Visit Provider Obstetrics & Gynecology
DX: R92.2 Inconclusive mammogram (principal); N64.4 Mastodynia
CPT/HCPCS: 76642; 77062; 77066; G0279

== ENCOUNTER 2021-06-28 13:18 | Outpatient (CLI) | payer BC, SELFPAY ==
--- NOTE | 2021-06-28 13:45 | MRI_ITS ---
STUDY: BILATERAL BREAST MR WITHOUT AND WITH CONTRAST REASON FOR EXAM: Female, 30 years old. Family history of breast cancer. Several year history of right breast lump. TECHNIQUE: Multi-sequence multi-echo imaging of both breasts was performed with a dedicated breast coil. T1-weighted and T2-weighted images were performed before the administration of contrast. T1-weighted images were also performed after the intravenous administration of 14 cc of Dotarem contrast. COMPARISON: Right breast ultrasound dated 06/07/2021, bilateral mammogram dated 06/07/2021. FINDINGS: RIGHT BREAST: The breast tissue is heterogeneously dense with moderate background enhancement. There are no abnormal enhancing masses or areas of non-mass enhancement in the right breast. LEFT BREAST: The breast tissue is heterogeneously dense with moderate background enhancement. There are no abnormal enhancing masses or areas of non-mass enhancement in the left breast. There are no enlarged or abnormal lymph nodes. There is no abnormality in the visualized regions of the chest or liver. MRI/Breast Bilateral W/O and W IMPRESSION: No abnormality on the breast MRI examination with contrast. Yearly follow-up mammogram recommended. CATEGORY: BIRADS Category 2: Benign. A letter regarding these results will be sent to the patient by the facility within 30 days. Electronically Signed: Dread Penaloza MD at 10:40 EDT ,
== END 2021-06-28 23:59 | disposition home or self-care (01) ==
LOC: MRI 13:18
PROVIDERS: PCP Family Medicine; Referring Provider Obstetrics & Gynecology; Visit Provider Obstetrics & Gynecology
DX: Z00.00 Encounter for general adult medical examination without abnormal findings (principal); Z80.41 Family history of malignant neoplasm of ovary; Z80.3 Family history of malignant neoplasm of breast
CPT/HCPCS: 77049; A9575; C8908

== ENCOUNTER 2022-01-31 07:00 | Outpatient (RCR) | payer OTHER, SELFPAY ==
--- NOTE | 2022-01-24 09:26 | HP.PTEVAL_ITS ---
Patient's Visit Information JERAMY PALAFOX is a 31 year old F referred to Physical Therapy by Dr. Jude Martin MD with a diagnosis of Ankle Sprain. Date of Evaluation: 01/24/22 Physical Therapist: Quynh Lemon DPT - Visit Plan Frequency: 2x /Week Duration: 4 Weeks Plan: Focus on LE ROM and Strength, Proprioception and functional mobility. HEP Given IE: ankle ROM and gastroc stretch - Subjective Patient reports that she stepped out of her car and rolled her left ankle. She had an ankle repair on the right in [address] Miller. She saw Dr. Miller this week who did x-rays and sent her to PT. Will do MRI and further evaluation de pending on out come of conservative care. The ankle is good if she does not move it. If she tries to take big steps with walking it hurts a lot. Worst: 7/10 Agg: walking, going up/down stairs, impact. Best: 0/10 Eases; sitting. The pain is located along the anterior ankle and medial malleolus. Describes the pain as sharp when she is moving. It takes a little bit after she stops moving for the pain to go away. Tingling in the medial ankle- no N/T in the toes. No pain that radiates into the knee. 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 Goes back to see Angela after PT. Goals: get the ankle back to normal. Very active has 3 boys and works out regularly. Sleep: not disturbed. PMHx: none Meds: none - Objective Posture: FH, RS can correct with verbal cues. Gait: antalgic- decreased stance on the. Stairs: asc/desc 8 recip with poor control with descent. Girth: Figure 8:50 cm Malls: 24 cm Mets: 21.5 cm. ROM: DF: 5 degrees from neutral PF: 30 degrees, Inver: 15 degrees, Ever: 10 degrees all with pain at end range. Strength: Core: fair, Hip: 4+/5, Knee: 5/5 Ankle: 4/5 with pain - Balance/Special Test Scores Lower Extremity Functional Score: 31 - Goals Goal 1:: Patient will be I HEP and progression Goal Time Frame: 4-6 Weeks Goal 2:: Patient will ambulate >300 feet with a normalized gait pattern Goal Time Frame: 4-6 Weeks Goal 3:: Patient will asc/desc 8 recip with no HR Goal Time Frame: 4-6 Weeks Goal 4:: Patient will SLS for 30 sec without pain Goal Time Frame: 4-6 Weeks Goal 5:: Patient will report 80% improvement Goal Time Frame: 4-6 Weeks - Rehabilitation Potential Physical Therapy Diagnosis: Patient presents with hypomobility- she has decreased ROM, LE and core strength/stabilization, proprioception and muscular endurance leading to poor balance, gait pattern and increased pain with ADL's Rehabilitation Potential: Good - Anticipated Interventions Patient/Client Instruction: Educate patient on: Benefits of Fitness Program Therapeutic Exercise to Include: Strength training, Endurance training, Balance training, Coordination, Agility training, Body mechanics, Postural training, Flexibilty training, Gait and locomotor training, Neuromotor development, Dynamic Lumbar Stabilization, Scapular Strength/Stabilization For the Purpose of:: To improve muscle performance and motor function TENS: Yes Cryotherapy (ice pack, ice massage): Yes Thermo therapy (hot pack): Yes Ultrasound (thermal/non thermal): Yes Thank you for the opportunity to evaluate your patient. For Medicare and Medicare HMO plans, please review the plan of care and approve it. It will need to be FAXED BACK to us at [phone] for Medicare purposes. For Medicare only, by signing this I certify the plan of care. Please let me know if there are questions or concerns regarding this plan of care. Physician Signature: Date:
--- NOTE | 2022-06-30 07:37 | HP.PTDCNRP_ITS ---
JERAMY PALAFOX was seen in my office for initial evaluation on 01/24/22. The following Plan of Care was established for this patient: Initial Frequency: 2x /Week Initial Duration: 4 Weeks Patient/Client Instruction: Educate patient on: Benefits of Fitness Program Therapeutic Exercise to Include: Strength training, Endurance training, Balance training, Coordination, Agility training, Body mechanics, Postural training, Flexibilty training, Gait and locomotor training, Neuromotor development, Dynamic Lumbar Stabilization, Scapular Strength/Stabilization For the Purpose of:: To improve muscle performance and motor function TENS: Yes Cryotherapy (ice pack, ice massage): Yes Thermo therapy (hot pack): Yes Ultrasound (thermal/non thermal): Yes This patient was last seen in our office . Pertinent comments regarding their Physical therapy will appear below: Patient is indep with HEP- and appropriate to be d/c and return to MD for furt her evaluation as needed. At this point I will be discontinuing this patient from physical therapy. I would be happy to see this patient again in the future if found appropriate by the physician. Thank you! Quynh Lemon DPT Balance/Gait/Functional tests - Balance/Special Test Scores Lower Extremity Functional Score: 31
== END 2022-01-31 19:00 | disposition home or self-care (01) ==
LOC: PT 07:00
PROVIDERS: PCP Family Medicine; Referring Provider Family Medicine; Visit Provider Family Medicine
DX: S93.402D Sprain of unspecified ligament of left ankle, subsequent encounter (principal); X58.XXXD Exposure to other specified factors, subsequent encounter
CPT/HCPCS: 97035; 97110; 97161

== ENCOUNTER 2022-03-19 06:42 | Emergency (ER) | payer OTHER, SELFPAY ==
[2022-03-19 06:42] VITALS: BP 131/72; PULSE 83; RESP 18; TEMP 36.6; O2SAT 99; BMI 30.7
--- NOTE | 2022-03-19 07:10 | EDS_ITS ---
HPI History of Present Illness Chief Complaint: Headache Narrative Narrative: 31-year-old female who denies significant past medical history presents with headache that she has had since Thursday, 3 to 4 days ago. She was diagnosed with COVID. Its mainly on the left side of her face behind her left sinuses. She had nausea and vomiting with it. She denies history of migraine headaches. She states that the physician on-call told her to come to the emergency department because of her headache. She has tried Tylenol and [id number] cold remedies but still has headache and blurry vision on the left side of her face. No exacerbating or alleviating factors. No history of migraine headaches. She has an IUD in place and has a brief menstrual period for a day every 3 months. She denies any paresthesias. Currently she rates her pain an 8 out of 10. [facility] Medical History 38 weeks gestation of Breech presentation of fetus delivered History of ovarian cyst Uterine contractions at greater than 20 weeks of gestation Home Medications Medical Marijuana PRN Anxiety 12/20/20 [History Last Taken Unknown] naproxen 500 mg tablet 500 mg PO BID PRN #20 tabs 12/20/20 [Rx Last Taken Unknown] azithromycin 500 mg tablet (Zithromax TRI-CHRIS) See Rx Instructions PO .COMPLEX #3 tabs 03/19/22 [Rx Last Taken Unknown] Allergy/AdvReac Type Severity Reaction Status Date / Time No Known Allergies Allergy Verified 02/20/22 16:30 Family History Grandmother Breast cancer Son Heart disease Surgical History History of removal of skin mole Hx of biopsy Status post section Social History Smoking Status: Never smoker alcohol intake: current alcohol intake frequency: a few times a month ROS ROS ED ROS Narrative Constitutional: No fever currently, no chills. Diagnosed with COVID-19 4 days ago HEENT: No sore throat. No neck pain. No loss of vision. Blurry vision out of left eye. Positive rhinorrhea and congestion. Cardiovascular: No chest pain. No palpitations. No pedal edema. Respiratory: Positive cough, no shortness of breath. Abdominal: No abdominal pain. Positive nausea. Positive vomiting-resolved. Genitourinary: No dysuria. No hematuria. Musculoskeletal: No myalgias. No arthralgias. Neurologic: Left-sided facial pain and headaches. No dizziness. No lightheadedness. Positive photophobia. Skin: No rash. No change in color. Psychiatric: No depression. No anxiety. EXAM Physical Exam Narrative Exam Narrative: Afebrile. Vital signs noted. HEENT: Normocephalic. Atraumatic. PERRL, EOMI. Neck soft and supple. No point tenderness or step off. Cardiovascular: Regular rate and rhythm. No murmurs, rubs, or gallops appreciated. Respiratory: No tachypnea. Lungs clear to auscultation bilaterally. Gastrointestinal: Abdomen soft, nontender, with normoactive bowel sounds. No rebound or guarding. Neurological: Awake. Alert. Nonfocal, nonlateralizing. Patellar DTRs equal and symmetric. Skin: No rash. Normal color. No pallor. Musculoskeletal: No pedal edema. Full range of motion extremities. Const Vital Signs: 03/19/22 06:42 Temperature 98 F Temperature Source Temporal Pulse Rate 83 Respiratory Rate 18 Blood Pressure 131/72 H Blood Pressure Mean 91 Pulse Ox 99 Oxygen Delivery Method Room Air MDM MDM MDM Narrative Medical decision making narrative: She may have more of a maxillary sinus headache from her COVID viral infection. However, given that this is her first bout with migrainous type headaches additionally as she endorses photophobia, CT imaging will be obtained. She will be given IV fluids, Toradol, Benadryl, and Compazine. CT of the brain shows partial opacification of the frontal, ethmoid, sphenoid, and maxillary sinuses. After medication, as I think that her facial pain and symptoms of COVID and sinusitis may have triggered a migraine type headache, she was reexamined and states that her pain is down from an 8 to a 5. I feel she be discharged safely home with follow-up. However, given her pansinusitis, although it is only been a few days since her diagnosis of COVID which is viral, she was given a prescription for a sinusitis azithromycin Tri-Chris of 500 mg almost as a ezig-qit-ldd type of prescription. She will follow-up with her primary care provider. I feel she can be discharged safely home with follow-up. Return instructions were reviewed. Disposition is discharged home in stable condition. Radiography Diagnostic Testing: Clinical Impression(s) from Imaging Studies Brain CT 03/19/22 07:10 IMPRESSION: No acute intracranial processes. Partial opacification of the frontal, ethmoid, sphenoid and visualized left maxillary sinuses consistent with a history of sinusitis. Electronically Signed: Jana Bell MD at 8:06 EST , Discharge Plan Triage Chief Complaint: Headache ED Provider: Sonu German Dx/Rx/DC Orders Clinical Impression: Headache, Sinusitis, COVID Instructions: ED Headache Unspecified, ED Sinus Headache, ED Sinusitis (Antibiotic Treatment) Prescriptions: New azithromycin [Zithromax TRI-CHRIS] 500 mg tablet See Rx Instructions PO .COMPLEX Qty: 3 0RF Rx Instructions: take 500 mg once daily for 3 days No Action Medical Marijuana PRN (Reason: Anxiety) naproxen 500 MG tablet 500 mg PO BID PRN Qty: 20 0RF Primary Care Provider: Azeem Stone Referrals: Azeem Stone MD [Primary Care Provider] - 1 Week if not improving Disposition Disposition: Home, Self Care
--- NOTE | 2022-03-19 07:10 | CT_ITS ---
INDICATION: Pain EXAMINATION: CT BRAIN - CT Head or Brain W/O Contrast Injection TECHNIQUE: Multiple axial images were obtained of the head without intravenous contrast. A radiation dose optimization technique was used for this scan. IV Contrast dosage and agent: None. COMPARISON: FINDINGS: BRAIN PARENCHYMA: No intra- or extra-axial hemorrhage. No evidence of acute infarct. No intracranial mass or mass effect. There is preservation of the flores/white matter interface. Posterior fossa structures are unremarkable. CSF SPACES: Appropriate for age. No hydrocephalus. Basal cisterns are patent. CALVARIUM, SKULL BASE, PARANASAL SINUSES AND MASTOID AIR CELLS: There is partial opacification of the frontal, ethmoid, sphenoid and visualized left maxillary sinuses. No discrete lytic or blastic abnormalities. ORBITS: Both globes, extraocular muscles, optic nerves and retrobulbar fat appear unremarkable. CT/Brain/Head without Contrast IMPRESSION: No acute intracranial processes. Partial opacification of the frontal, ethmoid, sphenoid and visualized left maxillary sinuses consistent with a history of sinusitis. Electronically Signed: Jana Bell MD at 8:06 EST ,
[2022-03-19] MEDS: Ketorolac 30 MG/ML Syringe IV (07:23)
[2022-03-19] MEDS: proCHLORPERazine 10 MG/2 ML Vial IV (07:23)
[2022-03-19] MEDS: 0.9% Normal Saline 1,000 ML 999 ML IV (07:23)
[2022-03-19] MEDS: DiphenhydrAMINE 50 MG/ML Syringe 25 MG IV (07:23)
[2022-03-19 08:23] VITALS: RESP 16
== END 2022-03-19 08:24 | disposition home or self-care (01) ==
PROVIDERS: Emergency Provider Emergency Medicine; PCP Family Medicine; Visit Provider Emergency Medicine
DX: J32.9 Chronic sinusitis, unspecified (principal); U07.1 COVID-19
CPT/HCPCS: 70450; 96374; 96375; 99283; J7030; A4216

== ENCOUNTER → 2022-07-02 | Outpatient (CLI) | payer OTHER, SELFPAY ==
--- NOTE | 2022-07-02 09:32 | BI_ITS ---
MAMMOGRAPHY - BILATERAL DIAGNOSTIC REASON FOR EXAM: Female, 31 years old. History of palpable lumps in both breasts. PERTINENT HISTORY: Grandmother with breast cancer. TECHNIQUE: Digital bilateral breast alfredo (3D mammographic acquisition) in the CC and MLO projections. 2-D mediolateral oblique (MLO) and craniocaudad (CC) views of both breasts were obtained. CAD: Full Field Digital Mammography with Computer Added Detection was performed. COMPARISON: Comparison is made with prior examination June 07, 2021. FINDINGS: Breast Composition: The breasts are extremely dense, which lowers the sensitivity of mammography. There are no dominant masses or suspicious calcifications. Once again, a tissue clip marker is seen within a 2.4 cm x 2.4 cm well-defined nodule in the anterior upper lateral aspect of the left breast. Stable benign-appearing bilateral axillary lymph nodes. No other significant abnormalities are identified. There has been no significant change since the prior study. BI/DIAG MAMM W/CAD, BILAT IMPRESSION: Stable bilateral diagnostic mammogram. With the patient''s history of bilateral breast lumps, targeted sonographic correlation is recommended. ASSESSMENT CATEGORY: BIRADS Category 0: Incomplete. Need additional imaging evaluation. A letter regarding these results will be sent to the patient by the facility within 30 days. Approximately 10% of breast cancers are not detected by mammography. A normal mammogram should not delay biopsy of a clinically suspicious abnormality. Electronically Signed: Alli Fonseca MD at 10:57 EDT ,
--- NOTE | 2022-07-02 09:32 | US_ITS ---
STUDY: ULTRASOUND BREAST - RIGHT REASON FOR EXAM: Female, 31 years old. Palpable lump in the right breast. TECHNIQUE: Axial and longitudinal images of the RIGHT breast were performed with a high resolution ultrasound transducer. # OF IMAGES: 60 COMPARISON: Comparison is made with prior mammogram done earlier in day as well as prior sonogram of the right breast dated June 07, 2021. FINDINGS: RIGHT Breast: Dense fibroglandular tissue. Mild degree of the retroareolar ductal dilatation. No mass lesion is seen. IMPRESSION: No mass lesion is seen. ASSESSMENT CATEGORY: BIRADS Category 1: Negative. A letter regarding these results will be sent to the patient by the facility within 30 days. Electronically Signed: Alli Fonseca MD at 15:34 EDT , STUDY: ULTRASOUND BREAST - LEFT REASON FOR EXAM: Female, 31 years old. Palpable lump left breast. TECHNIQUE: Axial and longitudinal images of the LEFT breast were performed with a high resolution ultrasound transducer. # OF IMAGES: 60 COMPARISON: Comparison is made with prior mammogram done earlier in today as well as prior sonogram of the left breast dated October 15, 2020. FINDINGS: LEFT Breast: The upper-outer quadrant of the left breast was examined with ultrasound. There is a 5 mm x 4 mm x 2 mm cyst at the 2:00 position of the breast at 6 cm from the nipple. US/Breast Limited Unilateral IMPRESSION: 5 mm x 4 mm x 2 mm cyst at the 2:00 position of the breast at 6 cm from the nipple. ASSESSMENT CATEGORY: BIRADS Category 2: Benign. A letter regarding these results will be sent to the patient by the facility within 30 days. Electronically Signed: Alli Fonseca MD at 15:35 EDT ,
== END | disposition home or self-care (01) ==
PROVIDERS: PCP Family Medicine; Visit Provider Registered Nurse
DX: N63.10 Unspecified lump in the right breast, unspecified quadrant (principal)
CPT/HCPCS: 76642; 77062; 77066; G0279

== ENCOUNTER → 2022-07-10 | Outpatient (CLI) | payer OTHER, SELFPAY ==
--- NOTE | 2022-07-10 | LIP_PTH ---
PATIENT: JERAMY PALAFOX LOC: [facility] U#:[id number] AGE/SX: 31/F ROOM: RE07/10/[address]: Dr. Adalid Haji MD : 1990 BED: DIS: 07/10/2022 SPEC #: [id number] RECD: 07/10/22 16:00 STATUS: GENNA MENDEL #: [id number] GEORGINA: 07/10/22 00:[address]: Adalid Haji DEPT: SURGICAL PATHOLOGY RECD BY: Laurent Garcia ENTERED: 07/11/22 09:02 SP TYPE: LIPOMA OTHR DR: Dr. Brock Stone MD Tissues: Soft tissues, NOS Procedures: Surgery Specimen Level III HEADER OPERATION: Excision buttock lipoma PRE-OP DIAGNOSIS: Lipoma buttock TISSUE SUBMITTED: Tissue left buttock MICROSCOPIC DIAGNOSIS Tissue left buttock, excision: Fragments of mature adipose tissue, consistent with lipoma with focal reactive changes. SJ:luis angel 07/14/2022 COMMENT Case has been reviewed in consultation with Dr. Alicea who concurs with the above diagnosis. IDC:AM MICROSCOPIC DESCRIPTION Slides are reviewed. GROSS DESCRIPTION Received in fixative is one container labeled with the patient's name and designated tissue left buttock. The specimen consists of three variable sized pieces of yellow adipose tissue measuring in aggregate 2.0 x 2.0 x 0.3 cm. The entire specimen is submitted in one cassette. / SJ:luis angel 07/11/2022 TC:5 CPT: 68364
== END | disposition home or self-care (01) ==
LOC: LABSPEC 16:13
PROVIDERS: PCP Family Medicine; Visit Provider Surgery
DX: D17.79 Benign lipomatous neoplasm of other sites (principal)
CPT/HCPCS: 88304

== ENCOUNTER 2024-01-22 07:11 | Emergency (ER) | payer OTHER, SELFPAY ==
[2024-01-22 07:12] VITALS: BP 129/79; PULSE 65; RESP 16; TEMP 36.4; O2SAT 99; BMI 23.3
--- NOTE | 2024-01-22 07:47 | CT_ITS ---
EXAM: CT ABDOMEN AND PELVIS WITH INTRAVENOUS CONTRAST CLINICAL INDICATION: periumbilical abdominal pain TECHNIQUE: Helically acquired images were obtained of the abdomen and pelvis with intravenous contrast. This CT exam was performed using one or more of the following dose reduction techniques: automated exposure control, adjustment of the mA and/or kV according to patient size, and/or use of iterative reconstruction technique. CONTRAST: IV 75mL Isovue-370 RADIATION DOSE: CTDIvol = 10.22 mGy, DLP = 340.60 mGy-cm COMPARISON: CT abdomen and pelvis with IV contrast 12/20/2020. FINDINGS: LOWER THORAX: Unremarkable. Lung bases are clear. No cardiomegaly. No significant pericardial effusion. ABDOMEN: LIVER: Unremarkable. Homogeneous. No focal mass. GALLBLADDER AND BILE DUCTS: Unremarkable. No calcified gallstones. No gallbladder distention or wall edema. No intra- or extrahepatic biliary ductal dilation. PANCREAS: Unremarkable. No focal cystic or solid mass. SPLEEN: Unremarkable. Normal size without focal cystic or solid mass. ADRENALS: Unremarkable. No nodules. KIDNEYS AND URETERS: Unremarkable. Normal renal size and position. No hydronephrosis. STOMACH AND BOWEL: Unremarkable. No stomach or bowel distention. No focal inflammatory change. PELVIS: APPENDIX: Normal. BLADDER: Unremarkable. REPRODUCTIVE: IUD device in place. No suspicious abnormality of the anteverted uterus and the bilateral adnexal structures. ABDOMEN and PELVIS: INTRAPERITONEAL SPACE: Unremarkable. No ascites or other fluid collection. No free air. BONES/JOINTS: Unremarkable. No suspicious lytic or blastic abnormality. SOFT TISSUES: Unremarkable. No discrete abdominal or pelvic wall hernia. VASCULATURE: Unremarkable. Abdominal aorta is non-dilated. LYMPH NODES: Unremarkable. No enlarged lymph nodes. CT/Abdomen/Pelvis W IV Cont ONLY IMPRESSION: 1. No CT evidence of mass or acute abnormality in the abdomen and pelvis. 2. No significant interval change when compared to 12/20/2020. 3. Electronically Signed: Sonu Camacho MD at 9:31 EDT ,
--- NOTE | 2024-01-22 07:49 | EX.ED.DYSGE1 ---
HPI History of Present Illness Chief Complaint: Abd Pain Narrative Narrative: Chief complaint and HPI: Periumbilical abdominal pain. 33-year-old female with history of ADHD presents for evaluation of periumbilical abdominal pain. Onset of symptoms yesterday evening but worsened this morning. Describes the pain as sharp. Rates it a 7 out of 10. Pain does not radiate. Last bowel movement was today. Endorses some nausea secondary to the pain but denies any emesis. Bowel movement was nonbloody. Denies any fever, chills, shortness of breath, chest pain, diarrhea, constipation, dysuria, hematuria, vaginal bleeding or discharge. Patient has a known IUD. She is irregular menstrual cycle secondary to this. She is sexually active. No concern for STI. History of a . Review of systems: See HPI Medications: As listed on the chart Allergies: As listed on the chart PFSH: Per chart Vital signs: As listed on the chart. Reviewed. Physical exam: Gen: A&O x3, NAD Head: Normocephalic, atraumatic Eyes: No sclera icterus, conjunctiva clear ENT: Moist mucous membranes Neck: Trachea midline, No JVD CV: RRR, no murmurs, no peripheral edema Resp: Lungs CTA BL, no w/r/c GI: Abd soft, non-distended, mildly tender to palpation around the umbilicus, no hernias appreciated, no r/r/g, no hepatosplenomegaly Musc: Full ROM, no deformity Skin: Warm, dry Neuro: Alert, oriented, grossly intact, sensation intact Psych: Cooperative, appropriate mood and affect PFS PFSH Medical History Contact with or exposure to other viral diseases Acute streptococcal pharyngitis COVID History of ovarian cyst Allergy/AdvReac Type Severity Reaction Status Date / Time No Known Allergies Allergy Verified 01/22/24 07:12 Family History Grandmother Breast cancer Son Heart disease Surgical History H/O removal of cyst History of ankle surgery History of removal of skin mole Hx of biopsy Social History (Updated 08/11/22 @ 15:41 by Rosy Vázquez) household members: spouse and children number of children: 3 current occupation: [employer] sexually active: Yes Smoking Status: Never smoker alcohol intake: current alcohol intake frequency: a few times a month substance use type: does not use additional social history: Spouse - Paulo EXAM Physical Exam Const Vital Signs: 01/22/24 07:12 01/22/24 09:56 Temperature 97.6 F L 98.8 F Temperature Source Oral Oral Pulse Rate 65 65 Respiratory Rate 16 12 Blood Pressure 129/79 H 113/73 Blood Pressure Mean 95 86 Pulse Ox 99 99 Oxygen Delivery Method Room Air Room Air MDM MDM MDM Narrative Medical decision making narrative: 33-year-old female presents for evaluation of periumbilical abdominal pain. Differential diagnosis includes but is not limited to gastroenteritis, gastritis, pancreatitis, appendicitis, ulcer. Morphine, Zofran, Pepcid ordered for symptoms. Abdominal pain workup ordered including CT abdomen and pelvis. CBC without leukocyte or anemia. CMP without DOROTHY, transaminitis. Lipase unremarkable. UA is positive for ketones, blood, small leuk esterases. No WBC. This is a dirty sample with 10-25 epithelial cells. No bacteria. Patient not having any UTI symptoms. Will send urine for culture. Urine negative. CT abdomen pelvis without any acute pathology. IUD is in place. At this point in time, no clear etiology for patient's periumbilical abdominal pain. On reexamination, patient is improved. Suspect possible viral gastroenteritis. Patient was told to monitor for worsening or changing symptoms. Tylenol and ibuprofen as needed for pain. Follow-up with PCP. Return precautions were explained. She confirmed understand the plan. She was educated that she needs to follow-up with her PCP for repeat urine as there was blood in her urine this time. She confirmed understanding. Impression: 1. Periumbilical abdominal pain 2. Incidental hematuria Lab Data Labs: Laboratory Results - last 24 hr 01/22/24 01/22/24 08:10 08:15 WBC 5.2 RBC 4.07 L Hgb 12.9 Hct 38.7 MCV 95.1 MCH 31.7 MCHC 33.3 RDW Std Deviation 44.4 H RDW Coeff of Juliette 12.8 Plt Count 273 MPV 9.0 Immature Gran % (Auto) 0.400 Neut % (Auto) 67.7 Lymph % (Auto) 22.4 [place] % (Auto) 7.7 Eos % (Auto) 1.0 Baso % (Auto) 0.8 Absolute Neuts (auto) 3.5 Absolute Lymphs (auto) 1.16 Nucleated RBC % 0 Sodium 140 Potassium 4.0 Chloride 110 H Carbon Dioxide 27.0 Anion Gap 4 L BUN 9 Creatinine 0.84 Estim Creat Clear Calc 78.06 Est GFR (MDRD) Af Amer 99 Est GFR (MDRD) Non-Af 82 BUN/Creatinine Ratio 10.7 Glucose 97 Calcium 8.9 Total Bilirubin 0.50 AST 11 L ALT 17 Alkaline Phosphatase 46 Total Protein 7.1 Albumin 4.0 Globulin 3.1 Albumin/Globulin Ratio 1.3 Lipase 36 Urine Color Yellow Urine Clarity Sl. Cloudy Urine pH 5.0 Ur Specific [place] 1.025 Urine Protein 30 H Urine Glucose (UA) Normal Urine Ketones 5 H Urine Occult Blood 150 H Urine Nitrite Negative Urine Bilirubin Negative Urine Urobilinogen 1 H Ur Leukocyte Esterase 25 H Urine RBC 5-10 SEEN Urine WBC 0-5 SEEN Ur Squamous Epith Cells 10-25 SEEN Urine Bacteria 0 SEEN Urine Mucus 0 SEEN Urine Test Negative Radiography Diagnostic Testing: Clinical Impression(s) from Imaging Studies Abdomen/Pelvis CT 01/22/24 07:47 IMPRESSION: 1. No CT evidence of mass or acute abnormality in the abdomen and pelvis. 2. No significant interval change when compared to 12/20/2020. 3. Electronically Signed: Sonu Camacho MD at 9:31 EDT , Discharge Plan Triage Chief Complaint: Abd Pain ED Provider: Kane Bender Dx/Rx/DC Orders Primary Care Provider: Brock Stone Referrals: Brock Stone MD [Primary Care Provider] - Print Language: Albanian
[2024-01-22] MEDS: Ondansetron 4 MG/2 ML Vial IV (08:07)
[2024-01-22 08:17] LABS: Absolute Lymphocyte Count 1.16 X10^3/uL (0.83-4.51); Absolute Neutrophil Count 3.5 X10^3/uL (2.0-7.7); Basophil# 0.04 X10^3/uL; Basophil% 0.8 % (0-1); Eosinophil# 0.05 X10^3/uL; Hematocrit 38.7 % (37-47); Hemoglobin 12.9 g/dL (12.0-15.0); Lymphocyte # 1.16 X10^3/ul (0.83-4.51); Lymphocyte % 22.4 % (19-41); Mean Corp Hgb Conc 33.3 g/dL (32-36); Mean Corpuscular Hgb 31.7 pg (27.0-32.0); Mean Corpuscular Volume 95.1 fL (81-99); Monocyte% 7.7 % (0-10); NRBC Flagged by Analyzer 0 % (0-5); Neutrophil # 3.52 X10^3/uL (2.7-7.7); Neutrophil % 67.7 % (47-70); Platelet Count 273 K/mm3 (150-450); RBC Distribution Width CV 12.8 % (11.6-14.6); RBC Distribution Width SD 44.4 fl (35.1-43.9); Red Blood Count 4.07 M/mm3 (4.2-5.4); White Blood Count 5.2 K/mm3 (4.4-11.0)
[2024-01-22 08:23] LABS: Bacteria 0 SEEN /hpf (None Seen); Mucous, Urine 0 SEEN /hpf (<or=2+)
[2024-01-22 08:30] LABS: Color, Urine Yellow (Yellow); Glucose, Dipstick Normal (Normal); Ketone-Dipstick 5 mg/dl (Negative); Leukocyte Esterase-Dipstick 25 /ul (Negative); Nitrite-Dipstick Negative (Negative); Occult Blood-Urine 150 /ul (Negative); Protein-Dipstick 30 mg/dl (Negative); Specific Gravity, Urine 1.025 (1.002-1.030); Urine Bilirubin Dipstick Negative (Negative); Urine Clarity Sl. Cloudy (Clear); Urine Urobilinogen 1 mg/dl (Normal)
[2024-01-22 08:35] LABS: ALB/GLOB Ratio 1.3 RATIO (0.9-2.4); AST(SGOT) 11 U/L (15-37); Alanine Aminotransfer ALT/SGPT 17 U/L (13-56); Alkaline Phosphatase 46 U/L (45-117); Anion Gap 4 (5-15); BUN 9 mg/dL (7-18); BUN/Creat Ratio 10.7 RATIO (10-20); Calcium,Total 8.9 mg/dL (8.5-10.1); Chloride 110 mmol/L (98-107); Creatinine, Serum 0.84 mg/dL (0.55-1.02); EST Glomerular Filtration Rate 82 mL/min (>60); Est Glom Filt Rate - Afr Amer 99 mL/min (>60); Estimated Creatinine Clearance 78.06 ml/min; Globulin 3.1 g/dL (2.2-4.2); Glucose 97 mg/dL (74-106); Lipase 36 U/L (13-75); Protein, Total 7.1 g/dL (6.4-8.2); Sodium Level 140 mmol/L (136-145)
[2024-01-22 08:38] LABS: Squamous Epithelial Cells - UA 10-25 SEEN /hpf (5-10)
[2024-01-22 08:39] LABS: Internal QC Validated? YES +Cl - CLEAR BKGD; Pregnancy, Urine Negative Negative; Red Blood Cells-Urine 5-10 SEEN /hpf (0-5); White Blood Cells 0-5 SEEN /hpf (0-5)
[2024-01-22 09:56] VITALS: BP 113/73; PULSE 65; RESP 12; TEMP 37.1; O2SAT 99
== END 2024-01-22 10:13 | disposition home or self-care (01) ==
PROVIDERS: Emergency Provider Surgery; PCP Family Medicine; Visit Provider Surgery
DX: R10.33 Periumbilical pain (principal); R31.9 Hematuria, unspecified; R11.0 Nausea; Z97.5 Presence of (intrauterine) contraceptive device; F90.9 Attention-deficit hyperactivity disorder, unspecified type
CPT/HCPCS: 74177; 80053; 81001; 81025; 83690; 85025; 87086; 96374; 99282; Q9967; A4216; J2405; J3490

== ENCOUNTER 2024-04-21 10:58 | Day surgery (SDC) | payer OTHER, SELFPAY ==
[2024-04-21] VITALS (11 sets, daily range): BP systolic 91–119; BP diastolic 51–82; PULSE 58–98; RESP 16–20; TEMP 35.8–36.3; O2SAT 98–100; BMI 23.3
--- NOTE | 2024-04-21 11:12 | CT_ITS ---
STUDY: CT ABDOMEN AND PELVIS WITHOUT CONTRAST REASON FOR EXAM: Female, 33 years old. llq abdominal pain RADIATION DOSAGE (If Supplied By Facility): CTDIvol = ( 6.30 ) mGy, DLP = ( 292.85 ) mGycm TECHNIQUE: Transaxial images were obtained from the dome of the diaphragm to the symphysis pubis without oral contrast, and without intravenous contrast. Sagittal and coronal images were reconstructed. Individualized dose optimization techniques were used for this CT. COMPARISON: Comparison is made with prior study dated January 22, 2024. FINDINGS: The visualized lung bases are unremarkable. The visualized portions of the heart are within normal limits. Normal liver. Normal gallbladder and extrahepatic biliary system. Normal spleen. Normal pancreas. Normal bilateral adrenal glands. Normal right kidney. Mild left hydronephrosis due to a 7 mm calculus at the right ureteral pelvic junction. Normal visualized stomach. Normal small intestine. Normal colon. The appendix is visualized and appears normal. Normal abdominal aorta. Normal inferior vena cava. Normal retroperitoneum. Normal urinary bladder. IUD is seen within the endometrium. Normal abdominal wall. Normal osseous structures. CT/Abdomen/Pelvis without Cont IMPRESSION: 7 mm calculus at the left ureteropelvic junction causing a left hydronephrosis. Electronically Signed: Alli Fonseca MD at 12:19 [facility] ,
--- NOTE | 2024-04-21 11:12 | EX.ED.DYSGE1 ---
HPI <BRYANT Lou - Last Filed: 04/21/24 15:42> History of Present Illness Chief Complaint: Abd Pain Narrative Narrative: 33-year-old female with past medical history of ADHD, ovarian cysts presents with sudden onset left lower quadrant abdominal pain and nausea and vomiting that started at 9 AM. She had a normal nonbloody bowel movement this morning. No urinary symptoms. No fever or chills. No chest pain, shortness of breath, or upper respiratory symptoms. She states she has a history of a ruptured ovarian cyst. She has also had a x 1. PFSH <BRYANT Lou - Last Filed: 04/21/24 15:42> PFS Medical History Contact with or exposure to other viral diseases Acute streptococcal pharyngitis COVID History of ovarian cyst Home Medications ?Medication ?Instructions ?Recorded ?Last Taken ?Type cephalexin 500 mg capsule 500 mg PO BID #6 caps 04/21/24 Unknown Rx ibuprofen 200 mg tablet (Advil) 400 mg PO Q8H PRN fever or pain 04/21/24 04/21/24 History lisdexamfetamine 30 mg capsule 30 mg PO DAILY 04/21/24 04/21/24 History phenazopyridine 100 mg tablet 100 mg PO TID PRN pain #10 tabs 04/21/24 Unknown Rx (Pyridium) Allergy/AdvReac Type Severity Reaction Status Date / Time No Known Allergies Allergy Verified 04/21/24 10:58 Family History Grandmother Breast cancer Son Heart disease Surgical History H/O removal of cyst History of ankle surgery History of removal of skin mole Hx of biopsy Social History household members: spouse and children number of children: 3 current occupation: [employer] sexually active: Yes Smoking Status: Never smoker alcohol intake: current alcohol intake frequency: a few times a month substance use type: does not use additional social history: Spouse - Paulo ROS <BRYANT Lou - Last Filed: 04/21/24 15:42> ROS ED ROS Narrative Constitutional: Negative for fever, chills, malaise. CVS: Negative for chest pain, syncope. Respiratory: Negative for shortness of breath. GI: Positive for abdominal pain, nausea, vomiting. Negative for diarrhea, constipation, melena, hematochezia. : Negative for dysuria, hematuria or frequency. EXAM <BRYANT Lou - Last Filed: 04/21/24 15:42> Physical Exam Narrative Exam Narrative: CONST: Patient appears uncomfortable sitting in bed. EYES: Normal inspection. NECK: Normal inspection. RESP: No respiratory distress, CTAB. CVS: Regular rate and rhythm, no murmur, no gallop. ABD: Soft with epigastric and LLQ tenderness, no guarding or rebound, nondistended. Back: Normal inspection, no CVA tenderness. SKIN: Color normal, no rash, warm, dry, intact. EXTREMITIES: Normal appearance, no pedal edema. NEURO: Alert and answering questions appropriately. PSYCH: Normal affect. Const Vital Signs: 04/21/24 10:58 04/21/24 12:38 04/21/24 14:06 Temperature 96.5 F L Temperature Source Temporal Pulse Rate 71 58 L 77 Respiratory Rate 20 H 16 16 Blood Pressure 116/70 119/82 H Blood Pressure Mean 85 94 Pulse Ox 100 98 100 Oxygen Delivery Method Room Air Room Air Room Air <Dr. Bebo De Jesus MD - Last Filed: 04/21/24 11:27> Physical Exam Const Vital Signs: 04/21/24 10:58 04/21/24 12:38 04/21/24 14:06 Temperature 96.5 F L Temperature Source Temporal Pulse Rate 71 58 L 77 Respiratory Rate 20 H 16 16 Blood Pressure 116/70 119/82 H Blood Pressure Mean 85 94 Pulse Ox 100 98 100 Oxygen Delivery Method Room Air Room Air Room Air MDM <BRYANT Lou - Last Filed: 04/21/24 15:42> MDM MDM Narrative Medical decision making narrative: Differential includes but not limited to kidney stone, diverticulitis, ovarian etiology Consults: Urology 33-year-old female had sudden onset LLQ abdominal pain and vomiting this morning. She appears uncomfortable but nontoxic. Afebrile and hemodynamically stable. She has a normal cardiopulmonary exam. She is tender in the LLQ without peritoneal signs. No flank tenderness. CBC is normal. BMP shows mildly low potassium at 3.3, glucose 131, otherwise unremarkable. test is negative. CT shows a 7 mm obstructive stone at the left ureteropelvic junction with left hydronephrosis. On my review of the scan I think it is more like 9 mm. Urinalysis is nitrite positive but has no other signs of infection and so sent for culture. Patient has significant pain and nausea and has received a total of morphine 4 mg x 3 and Toradol 15 mg x 1. I consulted urology and Dr. Esparza admitted the patient and took her to surgery. I have personally performed a face to face assessment of the patient and have reviewed the MELY Note. I performed a substantive portion of the visit including all aspects of the following. My trinidad findings include: History is 33-year-old female prior . States that around 9 AM this morning developed left lower quadrant abdominal pain with nausea and vomiting. Prior kidney stone. Denies any dysuria or hematuria. Denies any right sided abdominal pain. No trauma to her abdomen. Exam is [33-year-old female vital signs stable afebrile. She does not look septic or toxic. H EENT exam moist weeks membranes. Pupils round react to light. Lungs clear to auscultation. Heart regular rhythm rate about 70 no murmur. Abdomen soft nondistended normal bowel sounds no peritoneal signs. She is tender left lower quadrant suprapubic. Area. No hernia or mass. Right upper right lower quadrant unremarkable. No signs of obstruction. No pulsatile mass. Moving all 4 extremities. Nontender no edema. Back nontender. Neurologically she is awake and alert.] Medical Decision Making [evaluate this patient with our physician assistant womens volleyball coach. CAT scan labs are pending. Treated with morphine for pain and Zofran for nausea.] Other additions or changes: [None] Lab Data Labs: Laboratory Results - last 24 hr 04/21/24 04/21/24 11:18 13:30 WBC 7.8 RBC 4.34 Hgb 13.5 Hct 39.6 MCV 91.2 MCH 31.1 MCHC 34.1 RDW Std Deviation 41.1 RDW Coeff of Juliette 12.3 Plt Count 306 MPV 9.1 Immature Gran % (Auto) 0.300 Neut % (Auto) 71.0 H Lymph % (Auto) 20.8 [place] % (Auto) 7.1 Eos % (Auto) 0.3 Baso % (Auto) 0.5 Absolute Neuts (auto) 5.5 Absolute Lymphs (auto) 1.62 Nucleated RBC % 0 Sodium 137 Potassium 3.3 L Chloride 104 Carbon Dioxide 19.0 L Anion Gap 14 BUN 8 Creatinine 1.00 Estim Creat Clear Calc 65.57 Est GFR (MDRD) Af Amer 81 Est GFR (MDRD) Non-Af 67 BUN/Creatinine Ratio 8.0 L Glucose 131 H Calcium 9.7 Total Bilirubin 1.10 H AST 12 L ALT 20 Alkaline Phosphatase 48 Total Protein 7.2 Albumin 4.4 Globulin 2.8 Albumin/Globulin Ratio 1.6 Lipase 32 Serum , Qual NEGATIVE Urine Color Dania Urine Clarity Cloudy Urine pH 7.0 Ur Specific [place] 1.015 Urine Protein 100 H Urine Glucose (UA) Normal Urine Ketones 150 A* Urine Occult Blood 250 H Urine Nitrite Positive H Urine Bilirubin Negative Urine Urobilinogen 1 H Ur Leukocyte Esterase 100 H Urine RBC > 100 SEEN Urine WBC 0-5 SEEN Ur Squamous Epith Cells 0-5 SEEN Urine Bacteria 0 SEEN Urine Mucus 2+ Radiography Diagnostic Testing: Clinical Impression(s) from Imaging Studies Abdomen/Pelvis CT 04/21/24 11:12 IMPRESSION: 7 mm calculus at the left ureteropelvic junction causing a left hydronephrosis. Electronically Signed: Alli Fonseca MD at 12:19 EST Reading Location ID and State: [facility] / [place] , Service support , <Dr. Bebo De Jesus MD - Last Filed: 04/21/24 11:27> [facility] MDM Narrative Medical decision making narrative: I have personally performed a face to face assessment of the patient and have reviewed the MELY Note. I performed a substantive portion of the visit including all aspects of the following. My trin[place] findings include: History is 33-year-old female prior . States that around 9 AM this morning developed left lower quadrant abdominal pain with nausea and vomiting. Prior kidney stone. Denies any dysuria or hematuria. Denies any right sided abdominal pain. No trauma to her abdomen. Exam is [33-year-old female vital signs stable afebrile. She does not look septic or toxic. H EENT exam moist weeks membranes. Pupils round react to light. Lungs clear to auscultation. Heart regular rhythm rate about 70 no murmur. Abdomen soft nondistended normal bowel sounds no peritoneal signs. She is tender left lower quadrant suprapubic. Area. No hernia or mass. Right upper right lower quadrant unremarkable. No signs of obstruction. No pulsatile mass. Moving all 4 extremities. Nontender no edema. Back nontender. Neurologically she is awake and alert.] Medical Decision Making [evaluate this patient with our physician assistant womens volleyball coach. CAT scan labs are pending. Treated with morphine for pain and Zofran for nausea.] Other additions or changes: [None] History & Record Review Discussion w/independent historian: Patient Additional record(s) reviewed:: Prior inpatient record, Prior outpatient record, Prior ED visit and Prior labs Lab Data Attestation: I reviewed the patient's lab results. Labs: Laboratory Results - last 24 hr 04/21/24 04/21/24 11:18 13:30 WBC 7.8 RBC 4.34 Hgb 13.5 Hct 39.6 MCV 91.2 MCH 31.1 MCHC 34.1 RDW Std Deviation 41.1 RDW Coeff of Juliette 12.3 Plt Count 306 MPV 9.1 Immature Gran % (Auto) 0.300 Neut % (Auto) 71.0 H Lymph % (Auto) 20.8 [place] % (Auto) 7.1 Eos % (Auto) 0.3 Baso % (Auto) 0.5 Absolute Neuts (auto) 5.5 Absolute Lymphs (auto) 1.62 Nucleated RBC % 0 Sodium 137 Potassium 3.3 L Chloride 104 Carbon Dioxide 19.0 L Anion Gap 14 BUN 8 Creatinine 1.00 Estim Creat Clear Calc 65.57 Est GFR (MDRD) Af Amer 81 Est GFR (MDRD) Non-Af 67 BUN/Creatinine Ratio 8.0 L Glucose 131 H Calcium 9.7 Total Bilirubin 1.10 H AST 12 L ALT 20 Alkaline Phosphatase 48 Total Protein 7.2 Albumin 4.4 Globulin 2.8 Albumin/Globulin Ratio 1.6 Lipase 32 Serum , Qual NEGATIVE Urine Color Dania Urine Clarity Cloudy Urine pH 7.0 Ur Specific [place] 1.015 Urine Protein 100 H Urine Glucose (UA) Normal Urine Ketones 150 A* Urine Occult Blood 250 H Urine Nitrite Positive H Urine Bilirubin Negative Urine Urobilinogen 1 H Ur Leukocyte Esterase 100 H Urine RBC > 100 SEEN Urine WBC 0-5 SEEN Ur Squamous Epith Cells 0-5 SEEN Urine Bacteria 0 SEEN Urine Mucus 2+ Radiography Diagnostic Testing: Clinical Impression(s) from Imaging Studies Abdomen/Pelvis CT 04/21/24 11:12 IMPRESSION: 7 mm calculus at the left ureteropelvic junction causing a left hydronephrosis. Electronically Signed: Alli Fonseca MD at 12:19 EST , Discharge Plan Dx/Rx/DC Orders Clinical Impression: Calculus of left kidney, Hydronephrosis of left kidney Disposition Disposition: Acute Care [facility] Discharge Date/Time: 04/21/24 15:09
[2024-04-21] MEDS: 0.9% Normal Saline (1000mL) 1,000 ML 999 ML IV (11:18)
[2024-04-21] MEDS: Ondansetron 4 MG/2 ML Vial IV ×2 (11:18→13:33)
[2024-04-21] MEDS: Morphine 4 MG/ML Syringe IV ×3 (11:19→13:33)
[2024-04-21 11:28] LABS: Absolute Lymphocyte Count 1.62 X10^3/uL (0.83-4.51); Absolute Neutrophil Count 5.5 X10^3/uL (2.0-7.7); Basophil# 0.04 X10^3/uL; Basophil% 0.5 % (0-1); Eosinophil# 0.02 X10^3/uL; Eosinophils% 0.3 % (0-5); Hematocrit 39.6 % (37-47); Hemoglobin 13.5 g/dL (12.0-15.0); Lymphocyte # 1.62 X10^3/ul (0.83-4.51); Lymphocyte % 20.8 % (19-41); Mean Corp Hgb Conc 34.1 g/dL (32-36); Mean Corpuscular Hgb 31.1 pg (27.0-32.0); Mean Corpuscular Volume 91.2 fL (81-99); Mean Platelet Vol. 9.1 fl (6.2-12.0); Monocyte# 0.55 X10^3/uL; Monocyte% 7.1 % (0-10); NRBC Flagged by Analyzer 0 % (0-5); Neutrophil # 5.53 X10^3/uL (2.7-7.7); Platelet Count 306 K/mm3 (150-450); RBC Distribution Width CV 12.3 % (11.6-14.6); RBC Distribution Width SD 41.1 fl (35.1-43.9); Red Blood Count 4.34 M/mm3 (4.2-5.4); White Blood Count 7.8 K/mm3 (4.4-11.0)
[2024-04-21 11:42] LABS: Internal QC Validated? YES +Cl - CLEAR BKGD; Pregnancy, Serum, hCG Quali. NEGATIVE Negative
[2024-04-21 11:44] LABS: ALB/GLOB Ratio 1.6 RATIO (0.9-2.4); AST(SGOT) 12 U/L (15-37); Alanine Aminotransfer ALT/SGPT 20 U/L (13-56); Albumin, Serum 4.4 g/dL (3.2-5.0); Alkaline Phosphatase 48 U/L (45-117); Anion Gap 14 (5-15); BUN 8 mg/dL (7-18); Calcium,Total 9.7 mg/dL (8.5-10.1); Chloride 104 mmol/L (98-107); EST Glomerular Filtration Rate 67 mL/min (>60); Est Glom Filt Rate - Afr Amer 81 mL/min (>60); Estimated Creatinine Clearance 65.57 ml/min; Globulin 2.8 g/dL (2.2-4.2); Glucose 131 mg/dL (74-106); Lipase 32 U/L (13-75); Potassium 3.3 mmol/L (3.5-5.1); Protein, Total 7.2 g/dL (6.4-8.2); Sodium Level 137 mmol/L (136-145)
[2024-04-21] MEDS: Ketorolac 15 MG/ML Vial IV ×2 (12:34→16:10)
[2024-04-21 13:51] LABS: Bacteria 0 SEEN /hpf (None Seen)
[2024-04-21 13:57] LABS: Color, Urine Amber (Yellow); Glucose, Dipstick Normal (Normal); Leukocyte Esterase-Dipstick 100 /ul (Negative); Nitrite-Dipstick Positive (Negative); Occult Blood-Urine 250 /ul (Negative); Protein-Dipstick 100 mg/dl (Negative); Specific Gravity, Urine 1.015 (1.002-1.030); Urine Bilirubin Dipstick Negative (Negative); Urine Clarity Cloudy (Clear); Urine Urobilinogen 1 mg/dl (Normal)
[2024-04-21 14:11] LABS: Mucous, Urine 2+ /hpf (<or=2+); Red Blood Cells-Urine > 100 SEEN /hpf (0-5); Squamous Epithelial Cells - UA 0-5 SEEN /hpf (5-10); White Blood Cells 0-5 SEEN /hpf (0-5)
[2024-04-21 14:12] LABS: Ketone-Dipstick 150 mg/dl (Negative)
--- NOTE | 2024-04-21 15:18 | PCM.PRE.AN2 ---
ASA Classification* ASA Classification ASA Classification: 2 and E Assessment & Plan Anesthesia* Anesthesia Assessment Anesthesia Assessment: Discussed sedation and/or anesthesia options, risks, benefits, and alternatives with patient/parents/legal guardian/POA. Questions invited. The patient/parents/legal guardian/POA seems to understand and agrees to proceed with anesthesia plan. Reviewed the physical assessment, medical history, allergy history and patient home medications list prior to surgery/procedure/anesthetic and documented any changes. Performed airway and anesthesia risk assessments. Anesthesia Type Anesthesia Type: MAC (GA bkup) Anesthesia Focused Assessment* Temperature: 97.3 F Pulse Rate: 77 Blood Pressure: 119/82 Respiratory Rate: 16 Pulse Ox: 100 Airway Assessment Mouth opens: >3 cm Mallampati Score: II Focused Labs Anesthesia Preop lab: CBC WBC 7.8 K/mm3 (4.4-11.0) 04/21/24 11:18 RBC 4.34 M/mm3 (4.2-5.4) 04/21/24 11:18 Hgb 13.5 g/dL (12.0-15.0) 04/21/24 11:18 Hct 39.6 % (37-47) 04/21/24 11:18 Plt Count 306 K/mm3 (150-450) 04/21/24 11:18 CHEMISTRY Potassium 3.3 mmol/L (3.5-5.1) L 04/21/24 11:18 Sodium 137 mmol/L (136-145) 04/21/24 11:18 Magnesium 6.4 mg/dL (1.8-2.4) H* 11/01/13 04:45 BUN 8 mg/dL (7-18) 04/21/24 11:18 Creatinine 1.00 mg/dL (0.55-1.02) 04/21/24 11:18 Glucose 131 mg/dL (74-106) H 04/21/24 11:18 TSH 0.82 uIU/mL (0.358-3.74) 05/22/17 10:50 COAG HCG, Quant 42959 mIU/mL (<9 non-preg) H 04/30/17 14:35 Urine Test Negative Negative 01/22/24 08:15 Pre-Assessment Diagnosis/Proposed Procedure Planned Operative Procedure(s): cystoscopy stent placement Anesthesia History Anesthesia History - delivery technician: Anesthesia History - delivery technician Hx Hospitalization No 03/03/23 08:59 Any Problems With Anesthesia No 03/03/23 08:59 Cholinesterase deficiency No 03/03/23 08:59 You/Your Family Experience No 03/03/23 08:59 fever (hyperthermia) with Relationship Recent Exposure to Contagious No 03/03/23 08:59 Disease Does patient have nerve No 03/03/23 08:59 stimulator Patient instructed to have device shut off --Does patient have Pacemaker or ICD? When Was Last Pacemaker Check QUESTION #4 FULL TEXT: You/Your Family Experience fever (hyperthermia) with Anesthesia Last Oral Intake Last Oral intake: Last Oral Intake NPO since Meds taken in AM with sips of water? Meds patient instructed to take am of surgery PONV PONV - delivery technician: PONV - delivery technician Female HX of Motion Sickness HX of N/V After Surgery Non-Smoker Duration of Surgery greater than 60 minutes Number of Risk Factors PONV Score Height & Weight Height & Weight: Anesthesia: Height & Weight Height 5 ft 3 in 04/21/24 10:58 Weight: 59.874 kg 04/21/24 10:58 Body Mass Index (BMI) 23.3 04/21/24 10:58 Respiratory Assessment Respiratory Assessment - delivery technician: Respiratory Tract Infection Hx - delivery technician Hx Respiratory Tract Infection STOP Sleep Apnea STOP Sleep Apnea - delivery technician: STOP Sleep Apnea - delivery technician Hx Hypertension No 03/03/23 08:59 Hx Sleep Apnea No 03/03/23 08:59 CPAP BIPAP Do you snore loudly (louder than talking or can be heard Do you often feel tired/ fatigued/ sleepy during daytime? Has anyone observed you stop breathing during sleep? STOP Results QUESTION #5 FULL TEXT : Do you snore loudly (louder than talking or can be heard through closed doors)? Tobacco Use History Tobacco Use History - delivery technician: Tobacco Use History - delivery technician Tobacco Use Smoking Status Never smoker 04/21/24 11:23 Hx Tobacco Use No 03/03/23 08:59 Years Smoking Packs Smoked per Day Smoking Cessation Date was within the last 15 years Hx Smoking Cessation Date Hx Smoking Cessation Counseling Hematologic Medial History Hematologic Hx - delivery technician: Hematologic Medical Hx - habilitation specialist Hx of Blood Transfusion Hx of Transfusion in last 3 Months Date of Last Transfusion (if within last 3 months) Ever experience any problems with transfusion(s)? Specify any problems Hx of Preganancy in last 3 Months Nurse Filling Out Transfusion & Questions: Date: Time: Patient unable to answer at this time (ie. confused, unrespo /Reproduction History /Reproductive History - delivery technician: /Reproductive Hx- delivery technician Hx Now Gestational Age (in weeks): EDC: Hx Hx Para Hx Section SAB No 04/21/24 10:58 PFSH Medical History Contact with or exposure to other viral diseases Acute streptococcal pharyngitis COVID History of ovarian cyst Home Medications ?Medication ?Instructions ?Recorded ?Last Taken ?Type ibuprofen 200 mg tablet (Advil) 400 mg PO Q8H PRN fever or pain 04/21/24 04/21/24 History lisdexamfetamine 30 mg capsule 30 mg PO DAILY 04/21/24 04/21/24 History Allergy/AdvReac Type Severity Reaction Status Date / Time No Known Allergies Allergy Verified 04/21/24 10:58 Family History Grandmother Breast cancer Son Heart disease Surgical History H/O removal of cyst History of ankle surgery History of removal of skin mole Hx of biopsy Social History household members: spouse and children number of children: 3 current occupation: [employer] sexually active: Yes Smoking Status: Never smoker alcohol intake: current alcohol intake frequency: a few times a month substance use type: does not use additional social history: Spouse - Paulo Review of Systems (Anesthesia) ROS Narrative System reviewed and no additional complaints, except as documented.
--- NOTE | 2024-04-21 15:38 | HP.PCM_ITS ---
HPI - General General Date of Admission: 04/21/24 Date of Service: 04/21/24 Chief Complaint: obstructing left ureteral stone HPI Narrative JERAMY PALAFOX, is a 33 F who presents to ER with severe left flank pain , nausea vomiting. has had severe pain. plan to take to OR today for left stent. [facility] Medical History Contact with or exposure to other viral diseases Acute streptococcal pharyngitis COVID History of ovarian cyst Home Medications ?Medication ?Instructions ?Recorded ?Last Taken ?Type ibuprofen 200 mg tablet (Advil) 400 mg PO Q8H PRN fever or pain 04/21/24 04/21/24 History lisdexamfetamine 30 mg capsule 30 mg PO DAILY 04/21/24 04/21/24 History Allergy/AdvReac Type Severity Reaction Status Date / Time No Known Allergies Allergy Verified 04/21/24 10:58 Family History Grandmother Breast cancer Son Heart disease Surgical History H/O removal of cyst History of ankle surgery History of removal of skin mole Hx of biopsy Social History household members: spouse and children number of children: 3 current occupation: [employer] sexually active: Yes Smoking Status: Never smoker alcohol intake: current alcohol intake frequency: a few times a month substance use type: does not use additional social history: Spouse - Paulo ROS Constitutional Constitutional: Denies chills, fever(s) or malaise Eyes Eyes: Denies blurry vision or change in vision ENT HEENT: Reports none Cardiovascular Cardiovascular: Denies chest pain or palpitations Respiratory/Chest Respiratory/Chest: Denies cough or shortness of breath with exertion Gastrointestinal Gastrointestinal: Denies abdominal pain, constipation or diarrhea Musculoskeletal Musculoskeletal: Denies back pain, joint stiffness or joint swelling Integumentary Integumentary: Denies dry skin, jaundice, lesions or rash Neurologic Neurologic: Denies confusion, syncope or weakness Psychiatric Psychiatric: Reports none; Denies anxiety or depression Endocrine Endocrinology: Denies excessive sweating, fatigue or flushing Hematologic/Lymphatic Hematologic/Lymphatic: Denies anemia, easy bleeding or easy bruising Vital Signs Vital Signs Vital Signs: 04/21/24 10:58 04/21/24 12:38 04/21/24 14:06 Temperature 96.5 F L Temperature Source Temporal Pulse Rate 71 58 L 77 Respiratory Rate 20 H 16 16 Blood Pressure 116/70 119/82 H Blood Pressure Mean 85 94 Pulse Ox 100 98 100 Oxygen Delivery Method Room Air Room Air Room Air 04/21/24 14:23 04/21/24 15:22 Temperature 97.3 F L 97.3 F L Temperature Source Oral Pulse Rate 77 77 Respiratory Rate 16 16 Blood Pressure 119/82 H 119/82 H Blood Pressure Mean 94 Pulse Ox 100 100 Oxygen Delivery Method Room Air Weight Weight: 59.874 kg Body Mass Index (BMI) 23.3 Results Lab / Micro Data 04/21/24 11:18 04/21/24 11:18 Labs: Laboratory Results - last 24 hr 04/21/24 11:18: WBC 7.8, RBC 4.34, Hgb 13.5, Hct 39.6, MCV 91.2, MCH 31.1, MCHC 34.1, RDW Std Deviation 41.1, RDW Coeff of Juliette 12.3, Plt Count 306, MPV 9.1, Immature Gran % (Auto) 0.300, Neut % (Auto) 71.0 H, Lymph % (Auto) 20.8, [place] % (Auto) 7.1, Eos % (Auto) 0.3, Baso % (Auto) 0.5, Absolute Neuts (auto) 5.5, Absolute Lymphs (auto) 1.62, Nucleated RBC % 0, Sodium 137, Potassium 3.3 L, Chloride 104, Carbon Dioxide 19.0 L, Anion Gap 14, BUN 8, Creatinine 1.00, Estim Creat Clear Calc 65.57, Est GFR (MDRD) Af Amer 81, Est GFR (MDRD) Non-Af 67, B UN/Creatinine Ratio 8.0 L, Glucose 131 H, Calcium 9.7, Total Bilirubin 1.10 H, A ST 12 L, ALT 20, Alkaline Phosphatase 48, Total Protein 7.2, Albumin 4.4, Globulin 2.8, Albumin/Globulin Ratio 1.6, Lipase 32, Serum , Qual NEGATIVE 04/21/24 13:30: Urine Color Dania, Urine Clarity Cloudy, Urine pH 7.0, Ur Specific [place] 1.015, Urine Protein 100 H, Urine Glucose (UA) Normal, Urine Ketones 150 A*, Urine Occult Blood 250 H, Urine Nitrite Positive H, Urine Bilirubin Negative, Urine Urobilinogen 1 H, Ur Leukocyte Esterase 100 H, Urine RBC > 100 SEEN, Urine WBC 0-5 SEEN, Ur Squamous Epith Cells 0-5 SEEN, Urine Bacteria 0 SEEN, Urine Mucus 2+ Imaging Radiology Impression Abdomen/Pelvis CT 04/21/24 11:12 IMPRESSION: 7 mm calculus at the left ureteropelvic junction causing a left hydronephrosis. Electronically Signed: Alli Fonseca MD at 12:19 EST , Assessment & Plan Assessment/Plan (1) Calculus of left kidney: PLAN: plan for cysto left stent placement today (2) Hydronephrosis of left kidney:
--- NOTE | 2024-04-21 15:45 | DCINST_ITS ---
Discharge Instructions Diet Discharge Diet: No restrictions DC O2, CPAP, BIPAP needs Home O2 Discharge instructions: No Dressing / Incision Discharge Activity: Return to Normal Activity and May Not Drive (while taking narcotic pain medications.) Dressing / Incision Call your doctor if you observe: Fever of 101 or Higher Follow Up Care Please Follow Up With: Del Esparza MD When: Call [phone] for an appointment Test Results: Test results from this visit will be discussed in further detail at your follow- up appointment, if applicable. Discharge Plan Admission Admit Date/Time: 04/21/24 14:17 Primary Reason for Your Visit: kidney stone Attending Provider: Del Esparza Primary Care Provider: Brock Stone Instructions Patient Instructions: Having a Ureteral Stent Discharge Orders/Prescriptions Prescriptions: New cephalexin 500 mg capsule 500 mg PO BID Qty: 6 0RF phenazopyridine [Pyridium] 100 mg tablet 100 mg PO TID PRN (Reason: pain) Qty: 10 0RF oxycodone 5 mg tablet 5 mg PO Q6H PRN (Reason: pain) 7 Days Qty: 20 0RF No Action lisdexamfetamine 30 mg capsule 30 mg PO DAILY ibuprofen [Advil] 200 mg tablet 400 mg PO Q8H PRN (Reason: fever or pain) Referrals / Follow Up: Brock Stone MD [Primary Care Provider] - Disposition Disposition (needs filled in before D/C Order can be placed): Home, Self Care
[2024-04-21] MEDS: Cefazolin 2 GM in Syringe IV (15:55)
--- NOTE | 2024-04-21 16:07 | OP.PCM_ITS ---
Operative Report (Standard) Operative Information Date of Procedure: 04/21/24 Pre-Operative Diagnosis: Obstructing left ureteral calculus Post-Operative Diagnosis: The same Surgery/Procedure Performed: Cystoscopy left retrograde pyelogram and left stent placement program trainer: No Type of Anesthesia: Local and MAC RN Documented Start/Stop Times: Operation Date: 04/21/24 16:00 Case Time Into Pre-Op 04/21/24 15:12 Procedure Start Time: 15:59 Procedure Stop Time: 16:04 Select all DRAINS/GRAFTS/IMPLANTS that apply: Drains Drain details: left stent Estimated Blood Loss: 0 Specimen collected: No Description of surgery: Patient was taken back to the operating room after induction of general anesthesia, the patient was placed in dorsolithotomy position. The urethra and genitals were prepped and draped in usual sterile fashion. Using a 21 [place] rigid cystourethroscope the entire length of the urethra was normal then went into the bladder. Identified the trigone the left and right ureteral orifice. I then cannulated the left ureteral orifice and advanced a wire up into the kidney. I then backloaded a 5 [place] open ended catheter over the wire and injected contrast to delineate the anatomy. After the retrograde was performed I then used fluoroscopic images and guidance to advanced a wire up into the kidney and over the 0.038 glidewire I advanced a 6 [place] by 26 cm double pigtail stent. stent went pass the stonet on the left. I then pulled the 0.038 Glidewire off and the stent coiled in the kidney bladder good position. The bladder was then drained. We confirmed the position of the stent by fluoroscopy. Patient anesthetic was reversed and was taken back to the PACU in good condition. Surgical Findings: Obstructing stone from the left kidney a lot of purulent debris came from the left side after stent placed Complications Complications: No Admit VTE Documentation VTE Present on Admission: No VTE Mechan Device Prophylaxis: SCD's VTE Pharm Prophylaxis ordered?: No
[2024-04-21 16:11] LABS: Internal QC Validated? YES +Cl - CLEAR BKGD
[2024-04-21 16:12] LABS: Pregnancy, Urine Negative Negative
--- NOTE | 2024-04-21 16:16 | PCM.POST.ANE ---
Anesthesia: Postop Eval I Current Vital Signs Temperature: 97.4 F Pulse Rate: 96 Blood Pressure: 93/57 Respiratory Rate: 18 Pulse Ox: 98 Oxygen Delivery Method: Room Air Assessment Airway patent: Yes Spontaneous unlabored respirations: Yes Mental status: Awake nausea: No Vomiting: No Anesthesia Complication: No Fluid Hydration Crystalloid volume administer (ml): 250 Total IV fluid infused: 250 Progress Note Anesthesia document: Postop Eval 1 completed: Yes
--- NOTE | 2024-04-21 16:58 | POSTOPAN2_ITS ---
Anesthesia Postop Eval I Sum Postop Eval Completion status Anesthesia document: Postop Eval 1 completed: Yes Anesthesia Postop Eval I Summary Anesthesia Postop Eval I Summary: Anesthesia Postop Eval I: Assessment Summary Airway patent Yes 04/21/24 16:17 OFFICE SERVICES [email or web address] Spontaneous unlabored Yes 04/21/24 16:17 OFFICE SERVICES [email or web address] respirations Mental status Awake 04/21/24 16:17 OFFICE SERVICES [email or web address] nausea No 04/21/24 16:17 OFFICE SERVICES [email or web address] Vomiting No 04/21/24 16:17 OFFICE SERVICES [email or web address] Anesthesia Postop Eval I: Fluid Summary Crystalloid volume administer 250 04/21/24 16:17 OFFICE SERVICES [email or web address] (ml) Colloids volume administered ( ml) Blood Product volume administered (ml) Total IV fluid infused 250 04/21/24 16:17 OFFICE SERVICES [email or web address] Anesthesia Postop Eval I: Summary Notes Anesthesia Complication No 04/21/24 16:17 OFFICE SERVICES [email or web address] Anesthesia Complication Comment: Post-operative progress note Anesthesia: Postop Eval II Evaluation Mental status: Awake Pain Level: 1 nausea: No Vomiting: No
--- NOTE | 2024-04-21 16:58 | PCM.POSTANE2 ---
Anesthesia Postop Eval I Sum Postop Eval Completion status Anesthesia document: Postop Eval 1 completed: Yes Anesthesia Postop Eval I Summary Anesthesia Postop Eval I Summary: Anesthesia Postop Eval I: Assessment Summary Airway patent Yes 04/21/24 16:17 [email or web address] [email or web address] Spontaneous unlabored Yes 04/21/24 16:17 PIGEON [email or web address] respirations Mental status Awake 04/21/24 16:17 PIGEON [email or web address] nausea No 04/21/24 16:17 PIGEON [email or web address] Vomiting No 04/21/24 16:17 PIGEON [email or web address] Anesthesia Postop Eval I: Fluid Summary Crystalloid volume administer 250 04/21/24 16:17 PIGEON [email or web address] (ml) Colloids volume administered ( ml) Blood Product volume administered (ml) Total IV fluid infused 250 04/21/24 16:17 PIGEON [email or web address] Anesthesia Postop Eval I: Summary Notes Anesthesia Complication No 04/21/24 16:17 PIGEON [email or web address] Anesthesia Complication Comment: Post-operative progress note Anesthesia: Postop Eval II Evaluation Mental status: Awake Pain Level: 1 nausea: No Vomiting: No
== END 2024-04-21 17:13 | disposition home or self-care (01) ==
LOC: ED 11:53 → ACINP 14:43 → SDC 04-22 09:44
PROVIDERS: Anesthesiology; Physician Assistant; Emergency Provider Emergency Medicine; PCP Family Medicine; Visit Provider Urology
PROC: (CPT 52332; principal; 2024-04-21 15:50)
DX: N13.2 Hydronephrosis with renal and ureteral calculous obstruction (principal); F90.9 Attention-deficit hyperactivity disorder, unspecified type; Z79.899 Other long term (current) drug therapy
CPT/HCPCS: 52332; 74176; 76000; 80053; 81001; 81025; 83690; 84703; 85025; 87086; 87088; 99284; A4216; C1769; C2617; J2405